=== PATIENT | male | born 1970 | race Caucasian/White ===

== ENCOUNTER 2017-08-19 12:31 | Emergency (ER) | payer SELFPAY ==
--- NOTE | 2017-08-19 12:40 | PDOC ---
History of Present Illness - General Chief Complaint: Pain, Acute Stated Complaint: left abd pain Time Seen by Provider: 08/19/17 12:33 - History of Present Illness Initial Comments: 08/19/17 12:42 47-year-old male history of daily alcohol abuse presents with worsening left- sided flank pain after a fall 2 days ago. The patient states that he was walking outside of his apartment when he became lightheaded, had tunnel vision and fell onto the railing striking his left abdomen. He does not recall if he had any head trauma but does report that he lost consciousness for about 30 seconds. He denies sustaining any other injuries from this fall. He reports that he was able to stand up soon after falling and went home where he proceeded to drink alcohol through yesterday in order to help alleviate the pain he was having on the left side of his abdomen. Today he reports the pain is much worse which prompted him to come to the emergency department. He also reports one episode of NBNB vomiting today. He denies any urinary incontinence or tongue biting when he fell. States that he may have been drinking when he fell two days ago. Denies any associated chest pain, shortness of breath, diaphoresis, palpitations before or after he lost consciousness. Denies any focal weakness or numbness. Social, +smoking, daily etoh 5-6 beers, no drugs Past History - Past Medical History Allergies/Adverse Reactions: Allergies Allergy/AdvReac Type Severity Reaction Status Date / Time No Known Allergies Allergy Verified 08/19/17 12:32 Home Medications: Ambulatory Orders Naproxen [Naprosyn -] 500 mg PO BID PRN #14 tablet 08/19/17 - Suicide/Smoking/Psychosocial Hx Smoking History: Current every day smoker Have you smoked in the past 12 months: No Number of Cigarettes Smoked Daily: 20 Hx Alcohol Use: Yes (3X/WK) Drug/Substance Use Hx: No Substance Use Type: Alcohol Review of Systems - Review of Systems Comments:: 08/19/17 12:47 GENERAL/CONSTITUTIONAL: No fever or chills. No weakness. HEAD, EYES, EARS, NOSE AND THROAT: No change in vision. No ear pain or discharge. No sore throat. GASTROINTESTINAL: +nausea, vomiting, +abd pain. no diarrhea or constipation. GENITOURINARY: No dysuria, frequency, or change in urination. CARDIOVASCULAR: No chest pain or shortness of breath. RESPIRATORY: No cough, wheezing, or hemoptysis. MUSCULOSKELETAL: No neck or back pain. SKIN: No rash NEUROLOGIC: No headache, vertigo, or change in strength/sensation. +LOC ENDOCRINE: No increased thirst. No abnormal weight change. HEMATOLOGIC/LYMPHATIC: No anemia, easy bleeding, or history of blood clots. ALLERGIC/IMMUNOLOGIC: No hives or skin allergy. *Physical Exam - Physical Exam Comments: 08/19/17 12:48 GENERAL: Awake, alert, and fully oriented, in no acute distress. +AOB HEAD: No signs of trauma EYES: PERRLA, EOMI, sclera anicteric, conjunctiva clear. Vision OU 20/20. + R upper lateral eyelid bruising, no edema ENT: Auricles normal inspection, hearing grossly normal, nares patent, no septal hematoma, oropharynx clear without exudates. Moist mucosa NECK: Normal ROM, supple, no lymphadenopathy, JVD, or masses LUNGS: Breath sounds equal, clear to auscultation bilaterally. No wheezes, and no crackles HEART: Regular rate and rhythm, normal S1 and S2, no murmurs, rubs or gallops ABDOMEN: Soft, normoactive bowel sounds. No guarding, no rebound. No masses. + L sided flank ttp +LUQ ttp EXTREMITIES: Normal range of motion, no edema. No clubbing or cyanosis. No cords, erythema, or tenderness NEUROLOGICAL: Normal speech, cranial nerves intact, negative pronator drift, 5/ 5 strength in all 4 extremities, normal sensation to light touch in all 4 extremities, normal cerebellar exam, normal gait, normal reflexes and tone SKIN: Warm, Dry, normal turgor, no rashes. Heart Score/ECG Review #1 08/19/17 12:55 Twelve-lead EKG was performed and reviewed by me. Normal sinus rhythm, rate 92. Normal axis and intervals. No ST elevations or T-wave inversions. ED Treatment Course - LABORATORY CBC & Chemistry Diagram: 08/19/17 13:10 08/19/17 13:10 Medical Decision Making - Medical Decision Making 08/19/17 13:00 47-year-old male history of alcohol abuse presents with severe left flank pain after syncope 2 days ago. Vitals initially significant for tachycardia to 114 however on my exam heart rate was 92. Exam remarkable for significant tenderness to palpation to the left flank area. Patient currently appears slightly intoxicated. Will do a syncope and trauma workup and reassess. -labs -ekg -cth,c-spine -cxr -ctap w IV contrast -pain control -reassess 08/19/17 16:43 All imaging negative. Pain improved with morphine and tylenol. Labs and EKG wnl. Pain may have been from a bruised rib. Pt reports that he has had syncope in the past in the setting of being anxious and that 2 days ago he had an anxiety provoking event that he does not want to talk about. Pt with no SOB, anemia, CHF, or hypotension. No CP. EKG wnl. I advised pt to f/u with PMD and a fly rail operator for his syncope and also advised him to cut down on his etoh use. Pt's partner is here, he requests DC home as he feels better. I discussed the physical exam findings, ancillary test results and final diagnoses with the patient. I answered all of the patient's questions. The patient was satisfied with the care received and felt comfortable with the discharge plan and treatment plan. The patient will call their primary care physician within 24 hours to arrange follow-up and will return to the Emergency Department with any new, persistent or worsening symptoms. *DC/Admit/Observation/Transfer Diagnosis at time of Disposition: Fall, Syncope - Discharge Dispostion Disposition: HOME Condition at time of disposition: Stable Admit: No - Prescriptions Prescriptions: Naproxen [Naprosyn -] 500 mg PO BID PRN #14 tablet PRN Reason: Pain - Referrals Referrals: Blake Sullivan MD [Staff Physician] - - Patient Instructions Printed Discharge Instructions: DI for Syncope in Adults (Fainting), Alcoholism (Alternative Therapy), DI for Rib Contusion Additional Instructions: Follow up with Dr. Sullivan within 1 week for follow up and also for referral to a fly rail operator within 1 month. Take naproxen twice a day as needed for pain control. Return to the emergency department if you have any new, worsening, or concerning symptoms. - Attestations Physician Attestion: 08/19/17 16:49 I, Dr. Lester Lee MD, attest that this document has been prepared under my direction and personally reviewed by me in its entirety. I further attest, that it accurately reflects all work, treatment, procedures and medical decision -making performed by me.
[2017-08-19 12:42] VITALS: TEMP 97.9; BMI 27.1
[2017-08-19] MEDS ORDERED: morphine CARPU-JECT 4 MG/1 ML DISP.SYRIN IVPUSH ONE (13:03)
[2017-08-19 13:18] LABS: BASOPHIL 3.9 % (0-2.0); EOSINOPHIL 1.2 % (0-4.5); MCH 32.7 pg (25.7-33.7); MCHC 34.5 g/dl (32.0-35.9); MEAN PLT VOLUME 8.3 fl (7.5-11.1); NEUTROPHILS 63.9 % (42.8-82.8); PLATELET COUNT 269 K/MM3 (134-434); RDW 13.5 % (11.9-15.9); WHITE BLOOD COUNT 7.6 K/mm3 (4.0-10.8)
[2017-08-19] MEDS ORDERED: morphine SULFATE 4 MG/ML VIAL ONE (13:25)
[2017-08-19 13:28] LABS: ACTIVATED PTT 25.6 SECONDS (24.0-38.9)
[2017-08-19] MEDS ORDERED: ONDANSETRON 4 MG/2 ML VIAL ONE (13:28)
[2017-08-19 13:32] LABS: ALBUMIN 4.1 g/dl (3.5-5.0); ALK PHOS 68 U/L (32-92); ANION GAP 10 (8-16); BILIRUBIN,TOTAL 0.7 mg/dl (0.2-1.0); CALCIUM 9.6 mg/dl (8.4-10.2); CO2 22 mmol/L (22-28); CREATININE 1.1 mg/dl (0.6-1.3); GLUCOSE,RANDOM 139 mg/dl (74-106); INR 0.99 (0.82-1.09); MAGNESIUM 1.6 mg/dL (1.8-2.4); PROTHROMBIN TIME (PATIENT) 11.1 SEC (10.2-13.0); SGOT/AST 33 U/L (10-42); SGPT/ALT 32 U/L (10-40); TOT PROT 7.5 g/dl (6.4-8.3)
[2017-08-19 14:13] VITALS: BP 134/80; PULSE 69
[2017-08-19] MEDS ORDERED: ACETAMINOPHEN 500 MG TABLET (FP) ONE (16:22)
[2017-08-19 16:34] LABS: PH,URINE 5.5 (4.5-8); URINE APPEARANCE Clear; URINE BILIRUBIN Negative (NEGATIVE); URINE BLOOD Negative (NEGATIVE); URINE GLUCOSE (UA) Negative (NEGATIVE); URINE KETONE Trace (NEGATIVE); URINE LEUK ESTERASE Negative (NEGATIVE); URINE NITRITE Negative (NEGATIVE); URINE PROTEIN Trace (NEGATIVE); URINE UROBILINOGEN 0.2 (0.2-1.0)
[2017-08-19 16:35] LABS: URINE COLOR YELLOW
[2017-08-19] MEDS ORDERED: ACETAMINOPHEN 500 MG TABLET (FP) PO ONE (16:42)
[2017-08-19 18:15] LABS: URINE MARIJUANA THC NEGATIVE ng/ml (CUTOFF=50)
--- NOTE | 2017-08-21 18:25 | EKG ---
Test Reason : Blood Pressure : / mmHG Vent. Rate : 092 BPM Atrial Rate : 092 BPM P-R Int : 158 ms QRS Dur : 094 ms QT Int : 368 ms P-R-T Axes : 060 043 042 degrees QTc Int : 455 ms NORMAL SINUS RHYTHM NONSPECIFIC ST ABNORMALITY WHEN COMPARED WITH ECG OF 08-NOV-2016 17:54, NO SIGNIFICANT CHANGE WAS FOUND REPEAT EKG IF CLINICALLY INDICATED Confirmed by LAVERN RAMIREZ MD ([id number]) on 08/21/2017 6:25:26 PM Referred By: CHELE Confirmed By:LAVERN RAMIREZ MD
== END 2017-08-19 16:57 | disposition home or self-care (01) ==
LOC: FER 12:31
PROC: 3E033NZ Introduction of Analgesics, Hypnotics, Sedatives into Peripheral Vein, Percutaneous Approach (ICD-10-PCS; principal; 2017-08-19)
DX: R55 Syncope and collapse (principal); W18.39XA Other fall on same level, initial encounter; Y93.89 Activity, other specified; Y92.9 Unspecified place or not applicable; F17.210 Nicotine dependence, cigarettes, uncomplicated; F10.99 Alcohol use, unspecified with unspecified alcohol-induced disorder
CPT/HCPCS: 36415; 70450-TC; 71020-TC; 72125-TC; 74177-TC; 80053; 80307; 81003; 83690; 83735; 83880; 84484; 85025; 85610; 85730; 86850; 86900; 86901; 93005; 99283-25

== ENCOUNTER 2018-03-14 11:00 | Emergency (ER) | payer SELFPAY ==
[2018-03-14 11:13] VITALS: TEMP 97.8; BMI 29.1
[2018-03-14] MEDS ORDERED: ACETAMINOPHEN 1000 MG/100 ML VIAL (NON FORMULARY) IVPB ONE (11:23)
[2018-03-14] MEDS ORDERED: ONDANSETRON 4 MG/2 ML VIAL IVPUSH ONE (11:23)
[2018-03-14] MEDS ORDERED: SODIUM CHLORIDE 1,000 ML IV STA (11:23)
[2018-03-14] MEDS ORDERED: FAMOTIDINE 20 MG/50 ML IVPB 20 MG/50 ML MG IVPB ONE ×2 (11:23→11:56)
--- NOTE | 2018-03-14 11:26 | PDOC ---
Attending Attestation - Resident Resident Name: BenyStef sánchez - ED Attending Attestation I have performed the following: I have examined & evaluated the patient, The case was reviewed & discussed with the resident, I agree w/resident's findings & plan, Exceptions are as noted - HPI HPI: 03/14/18 11:25 47y M hx of etoh abuse presents with nbnb n/v, abd pain, brbpr, associated with subjective fevers. pt also endorses some bloody stool this morning (notes loose brown stool with some blood in the toilet). pt notes he last drank this AM. and had recently tried to detox himself off etoh. pt notes episode of chest pain that lasted a few second, and is episodic, not associated with sob, diaphoresis. GENERAL: The patient is awake, alert, and fully oriented, Nontoxic - in no acute distress. HEAD: Normocephalic, atraumatic. EYES: extraocular movements intact, sclera anicteric, conjunctiva clear. ENT: Normal voice, Moist mucous membranes. NECK: Normal range of motion, supple LUNGS: Breath sounds equal, clear to auscultation bilaterally. No wheezes, no rhonchi, no rales. HEART: Regular rate and rhythm, normal S1 and S2 without murmur, rub or gallop. ABDOMEN: mild diffuse tenderness, voluntary guarding, no rebound EXTREMITIES: Normal range of motion, no edema. No clubbing or cyanosis. No cords, erythema, or tenderness. NEUROLOGICAL: No facial assymetry, Normal speech, moving all 4 extremities spontaneously and symmetrically PSYCH: Normal mood, normal affect. SKIN: Warm, Dry, normal turgor, ddx includes pancreatitis, gastritis, divertcilosis, acs will ck labs including cbc, cmp, lipase, trop will give fluids, pepcid, tylenol likley imaging due to abd exam - Physicial Exam PE: 03/14/18 12:10 see above - Medical Decision Making 03/14/18 14:10 pts labs reviewed, etoh level 160 at 11am, lfts slightly bumped, c/w chronic etohism ct abd unremarkble abd exam reasssed and si soft nontender. will continue current liter of fluids, anticipate dc, pt clinically sober, ambulating with normal gait, nonslurred speech Heart Score/ECG Review - ECG Impressions Comment:: 03/14/18 12:12 Twelve-lead EKG was performed and reviewed by me. There is normal sinus rhythm with a normal rate. rate of 68 The axis is normal. The intervals are normal. There is normal R wave progression There are no ST or T wave abnormalities.
[2018-03-14] MEDS ORDERED: ACETAMINOPHEN INJECTION 100 ML IVPB ONE (11:35)
[2018-03-14] MEDS ORDERED: ONDANSETRON 4 MG/2 ML VIAL ONE (11:35)
--- NOTE | 2018-03-14 11:59 | PDOC ---
History of Present Illness - General Chief Complaint: Pain, Acute Stated Complaint: BLOOD IN STOOL Time Seen by Provider: 03/14/18 11:12 History Source: Patient Exam Limitations: Intoxication - History of Present Illness Initial Comments: 03/14/18 11:57 Patient is a 47M with history of alcohol abuse (1 fifth of vodka per day, last drink just prior to presentation, no history of seizures) and tobacco abuse here today complaining of 3 days of abdominal pain. He's presenting today because he had an episode of bright red blood per rectum. Endorses associated fevers, chills, nausea, vomiting (non-bloody), chest pain and shortness of breath. Patient states that he's worried about detoxing and that he attempted to detox on his own but failed. Denies pain with urination. Past History - Past Medical History Allergies/Adverse Reactions: Allergies Allergy/AdvReac Type Severity Reaction Status Date / Time No Known Allergies Allergy Verified 03/14/18 11:09 Home Medications: Ambulatory Orders NK [No Known Home Medication] 03/14/18 COPD: No - Suicide/Smoking/Psychosocial Hx Smoking History: Current every day smoker Have you smoked in the past 12 months: Yes Number of Cigarettes Smoked Daily: 20 Information on smoking cessation initiated: No 'Breaking Loose' booklet given: 08/19/17 Hx Alcohol Use: Yes Drug/Substance Use Hx: No Substance Use Type: Alcohol Review of Systems - Review of Systems Comments:: 03/14/18 12:04 GENERAL/CONSTITUTIONAL: Positive for fever and chills. No weakness. HEAD, EYES, EARS, NOSE AND THROAT: No change in vision. No sore throat. CARDIOVASCULAR: Positive for chest pain and shortness of breath RESPIRATORY: No cough, wheezing, or hemoptysis. GASTROINTESTINAL: Positive for nausea, vomiting. Negative for diarrhea or constipation. GENITOURINARY: No dysuria, frequency, or change in urination. MUSCULOSKELETAL: No joint or muscle swelling or pain. No neck or back pain. SKIN: No rash NEUROLOGIC: Positive for headache. Negative for vertigo, loss of consciousness, or change in strength/sensation. ENDOCRINE: No increased thirst. No abnormal weight change HEMATOLOGIC/LYMPHATIC: No anemia, easy bleeding, or history of blood clots. ALLERGIC/IMMUNOLOGIC: No hives or skin allergy. *Physical Exam - Vital Signs Last Vital Signs Temp Pulse Resp BP Pulse Ox 97.8 F 85 20 133/85 97 03/14/18 11:10 03/14/18 11:10 03/14/18 11:10 03/14/18 11:10 03/14/18 11:10 - Physical Exam Comments: 03/14/18 12:05 GENERAL: Awake, alert, and fully oriented, in no acute distress RECTAL: Several hemorrhoids, tender, no pasha blood or mass appreciated HEAD: No signs of trauma, normocephalic, atraumatic EYES: PERRLA, EOMI, sclera anicteric, conjunctiva clear ENT: Auricles normal inspection, hearing grossly normal, nares patent, oropharynx clear without exudates. Moist mucosa NECK: Normal ROM, supple, no lymphadenopathy, JVD, or masses LUNGS: No distress, speaks full sentences, scattered wheezes bilaterally. HEART: Regular rate and rhythm, normal S1 and S2, no murmurs, rubs or gallops, peripheral pulses normal and equal bilaterally. ABDOMEN: Soft, diffusely tender, positive for voluntary guarding. No masses EXTREMITIES: Normal inspection, Normal range of motion, no edema. No clubbing or cyanosis. NEUROLOGICAL: Cranial nerves II through XII grossly intact. Normal speech, no focal sensorimotor deficits SKIN: Warm, Dry, normal turgor, no rashes or lesions noted. ED Treatment Course - LABORATORY CBC & Chemistry Diagram: 03/14/18 11:43 03/14/18 11:43 - RADIOLOGY Radiology Studies Ordered: Category Date Time Status ABDOMEN & PELVIS CT WITH CONTR [CT] Stat CT Scan 03/14/18 11:49 Ordered CXRPORT [CHEST X-RAY PORTABLE*] [RAD] Stat Radiology 03/14/18 11:27 Completed - Medications Given in the ED: ED Medications Discontinued Medications Generic Name Dose Route Start Last Admin Trade Name Freq PRN Reason Stop Dose Admin Acetaminophen 1,000 mg 03/14/18 11:23 03/14/18 11:50 Ofirmev Injection - IVPB 03/14/18 11:24 1,000 mg ONCE ONE Administration Lorazepam 2 mg 03/14/18 11:23 03/14/18 11:50 Ativan Injection - IVPUSH 03/14/18 11:24 2 mg ONCE ONE Administration Ondansetron HCl 4 mg 03/14/18 11:23 03/14/18 11:50 Zofran Injection IVPUSH 03/14/18 11:24 4 mg ONCE ONE Administration Medical Decision Making - Medical Decision Making 03/14/18 12:06 Patient is a 47M with history of alcohol abuse here today complaining of abdominal pain. Vital signs stable. Also concerned that he is about to withdraw. Hands shaking on exam. Will evaluate broadly given I do not trust patient's history given recent consumption of alcohol. Will do abdominal and cardiac workup. Will treat with fluids, tylenol, zofran, pepcid and ativan. Will do CT abdomen/pelvis with IV contrast. 03/14/18 12:28 EKG shows normal sinus rhythm with rate of 68bpm. No st elevations/depressions. Normal QRS/QTc/[place] intervals. Normal axis. No significant t wave abnormalities. 03/14/18 13:43 Laboratory Tests 03/14/18 03/14/18 03/14/18 11:31 11:43 11:43 WBC 5.3 Hgb 14.5 Plt Count 175 Total Bilirubin 0.3 AST 103 H ALT 103 H Troponin I < 0.02 Stool Occult Blood Trace Alcohol, Quantitative 160.26 H* CBC normal. AST/ALT mildly elevated. Troponin undetectable. Stool for occult blood trace positive, unsurprising given hemorrhoids on exam. Alcohol positive to 160. 03/14/18 14:12 CT negative. Patient clinically sober, receiving banana bag. Patient states that his abdominal pain has now resolved. Sitting upright. Patient now states that he does not want to detox at this time, will go home before attempting detox. Will discharge with return precautions, PCP referral, and contact information for [facility]. *DC/Admit/Observation/Transfer Diagnosis at time of Disposition: Abdominal pain - Discharge Dispostion Disposition: HOME Condition at time of disposition: Good Decision to Admit order: No - Referrals Referrals: [facility] [place] [Provider Group] - Patient Instructions Printed Discharge Instructions: DI for Alcohol Abuse, DI for Alcoholic Gastritis Additional Instructions: Please return if you have any new, worsening or concerning symptoms. Please follow up with a primary care physician, a referral has been provided for you. Please take pepcid up to twice per day for your stomach pain. Please follow up with [facility] for alcohol detox. The are located on [address] [place] [address]. Their phone number is [phone]. - Post Discharge Activity
[2018-03-14 12:16] LABS: BASO % 2.5 % (0-2.0); EOS % 2.6 % (0-4.5); HEMATOCRIT 42.7 % (35.4-49); HEMOGLOBIN 14.5 GM/dL (11.7-16.9); LYMPH % 27.8 % (8-40); MCH 33.4 pg (25.7-33.7); MCHC 34.1 g/dl (32.0-35.9); MEAN CELL VOLUME 97.9 fl (80-96); MEAN PLT VOLUME 8.1 fl (7.5-11.1); MONO % 12.6 % (3.8-10.2); NEUT % 54.5 % (42.8-82.8); PLATELET COUNT 175 K/MM3 (134-434); RBC 4.36 M/mm3 (4.00-5.60); RDW 14.7 % (11.9-15.9); WHITE BLOOD COUNT 5.3 K/mm3 (4.0-10.0)
[2018-03-14] MEDS ORDERED: FOLIC ACID INJECTION - 1 MG, THIAMINE HCL 100 MG, MULTIVIT INJECTION ADULT 10 ML in SOD... IVPB ONE (12:27)
[2018-03-14 12:44] LABS: ALBUMIN 3.7 g/dl (3.4-5.0); ANION GAP 11 (8-16); BLOOD UREA NITROGEN 16 mg/dL (7-18); CALCIUM 8.3 mg/dL (8.5-10.1); CHLORIDE 110 mmol/L (98-107); CO2 23 mmol/L (21-32); CREATININE 0.9 mg/dL (0.7-1.3); GLUCOSE,RANDOM 81 mg/dL (74-106); POTASSIUM 3.5 mmol/L (3.5-5.1); SGOT/AST 103 U/L (15-37); SODIUM 144 mmol/L (136-145)
[2018-03-14 12:48] LABS: LIPASE 230 U/L (73-393)
[2018-03-14 13:04] LABS: ALK PHOS 63 U/L (45-117); BILIRUBIN,TOTAL 0.3 mg/dL (0.2-1.0); TOT PROT 6.9 g/dl (6.4-8.2)
[2018-03-14 13:07] LABS: SGPT/ALT 103 U/L (12-78)
[2018-03-14 14:28] VITALS: BP 138/78; PULSE 68
--- NOTE | 2018-03-14 16:29 | EKG ---
Test Reason : Blood Pressure : / mmHG Vent. Rate : 068 BPM Atrial Rate : 068 BPM P-R Int : 176 ms QRS Dur : 096 ms QT Int : 412 ms P-R-T Axes : 060 037 001 degrees QTc Int : 438 ms NORMAL SINUS RHYTHM NORMAL ECG WHEN COMPARED WITH ECG OF 19-AUG-2017 12:49, NONSPECIFIC T WAVE ABNORMALITY NOW EVIDENT IN INFERIOR LEADS Confirmed by PAULA GOSS MD ([id number]) on 03/14/2018 4:29:12 PM Referred By: Confirmed By:PAULA GOSS MD
== END 2018-03-14 15:53 | disposition home or self-care (01) ==
LOC: JER 11:00
PROC: 3E033GC Introduction of Other Therapeutic Substance into Peripheral Vein, Percutaneous Approach (ICD-10-PCS; principal; 2018-03-14)
PROC: 3E033GC Introduction of Other Therapeutic Substance into Peripheral Vein, Percutaneous Approach (ICD-10-PCS; 2018-03-14)
PROC: 3E033NZ Introduction of Analgesics, Hypnotics, Sedatives into Peripheral Vein, Percutaneous Approach (ICD-10-PCS; 2018-03-14)
PROC: 3E033NZ Introduction of Analgesics, Hypnotics, Sedatives into Peripheral Vein, Percutaneous Approach (ICD-10-PCS; 2018-03-14)
PROC: 3E033GC Introduction of Other Therapeutic Substance into Peripheral Vein, Percutaneous Approach (ICD-10-PCS; 2018-03-14)
DX: K29.20 Alcoholic gastritis without bleeding (principal); F10.120 Alcohol abuse with intoxication, uncomplicated; Y90.6 Blood alcohol level of 120-199 mg/100 ml
CPT/HCPCS: 36415; 71045-TC-FY; 74177-TC; 80053; 80307; 82272; 82550; 82553; 83690; 84484; 85025; 93005; 93010; 99283-25; J0131; J7030

== ENCOUNTER 2018-03-20 14:53 | Inpatient (IN) | payer SELFPAY ==
[2018-03-20 16:37] VITALS: BMI 28.7
--- NOTE | 2018-03-20 18:24 | HP ---
CIWA Score - CIWA Score Nausea/Vomitin Muscle Tremors: 2 Anxiety: 3 Agitation: 2 Paroxysmal Sweats: 2 Orientation: 0-Oriented Tacttile Disturbances: 0-None Auditory Disturbances: 0-None Visual Disturbances: 1-Very Mild Sensitivity Headache: 1-Very Mild CIWA-Ar Total Score: 13 Admission ROS S - HPI Chief Complaint: alcohol withdrawal symptoms Allergies/Adverse Reactions: Allergies Allergy/AdvReac Type Severity Reaction Status Date / Time No Known Allergies Allergy Verified 03/14/18 11:09 History of Present Illness: 47 yo male with hx of alcohol and nicotine dependence is here seeking detox for the first time. PMHX: Asthma, hernia disc, anxiety and depression. Denies suicidal / homicidal ideation. Denies hx of suicide attempts. Reports last episode of seizure last Sunday03/14/18 and was taken to the hospital when attempting to self detox from alcohol. Reports no significant period of sobriety. Exam Limitations: No Limitations - Ebola screening Have you traveled outside of the country in the last 21 days: No Have you had contact with anyone from an Ebola affected area: No Have you been sick,other than usual withdrawal symptoms: No Do you have a fever: No - Review of Systems Constitutional: No Symptoms Reported, Chills, Diaphoresis, Changes in sleep EENT: reports: Blurred Vision (uses glases) Respiratory: reports: No Symptoms reported Cardiac: reports: No Symptoms Reported GI: reports: Diarrhea, Nausea, Poor Appetite, Poor Fluid Intake, Vomiting, Abdominal cramping, Other (hx blood in stool seen in ED 03/14/18 reports it was d /t a rupture hemrrhoids) : reports: No Symptoms Reported Musculoskeletal: reports: Back Pain, Joint Pain Integumentary: reports: No Symptoms Reported Neuro: reports: See HPI Endocrine: reports: Increased Thirst Hematology: reports: No Symptoms Reported Psychiatric: reports: Orientated x3, Anxious, Depressed Other Systems: Reviewed and Negative Patient History - Patient Medical History Hx Anemia: No Hx Asthma: Yes Hx Chronic Obstructive Pulmonary Disease (COPD): No Hx Cancer: No Hx Cardiac Disorders: No Hx Congestive Heart Failure: No Hx Hypertension: No Hx Seizures: Yes Hx Dementia: No Hx Diabetes: No Hx Gastrointestinal Disorders: No Hx Liver Disease: No Hx Genitourinary Disorders: No Hx Sexually Transmitted Disorders: No Hx Renal Disease (ESRD): No Hx Thyroid Disease: No Hx Human Immunodeficiency Virus (HIV): No (1999, declines testing ) Hx Hepatitis C: No Hx Depression: Yes Hx Suicide Attempt: No Hx Bipolar Disorder: No Hx Schizophrenia: No - Patient Surgical History Past Surgical History: Yes Hx Neurologic Surgery: No Hx Cataract Extraction: No Hx Cardiac Surgery: No Hx Lung Surgery: No Hx Breast Surgery: No Hx Breast Biopsy: No Hx Abdominal Surgery: No Hx Appendectomy: No Hx Cholecystectomy: No Hx Genitourinary Surgery: No Hx Section: No Hx Orthopedic Surgery: No Other Surgical History: LEFT ROTATOR CUFF 1999 Anesthesia Reaction: No - PPD History Previous Implant?: No Implanted On Prior R Admission?: No PPD to be Administered?: Yes - Smoking Cessation Smoking history: Current every day smoker Have you smoked in the past 12 months: Yes Aproximately how many cigarettes per day: 20 Hx Chewing Tobacco Use: No Initiated information on smoking cessation: Yes 'Breaking Loose' booklet given: 03/20/18 - Substance & Tx. History Hx Alcohol Use: Yes Hx Substance Use: Yes Substance Use Type: Alcohol Hx Substance Use Treatment: No - Substances Abused Alcohol Route: Oral Frequency: Daily Amount used: A LITTER BOTTLE VODKA Age of first use: 14 Date of Last Use: 03/20/18 Family Disease History - Family Disease History Other Family History: Patient is adopted Admission Physical Exam BHS - Vital Signs Vital Signs: Vital Signs - 24 hr 03/20/18 16:34 Temperature 97.7 F Pulse Rate 75 Respiratory 20 Rate Blood Pressure 138/90 - Physical General Appearance: Yes: Appropriately Dressed, Disheveled, Anxious HEENTM: Yes: EOMI, Hearing grossly Normal, Normal ENT Inspection, Normocephalic , Normal Voice, SALEEM, Pharynx Normal, Tm's normal, Other (wears glasses) Respiratory: Yes: Chest Non-Tender, Lungs Clear, Normal Breath Sounds, No Respiratory Distress, No Accessory Muscle Use Neck: Yes: Within Normal Limits Breast: Yes: Breast Exam Deferred Cardiology: Yes: Regular Rhythm, Regular Rate Abdominal: Yes: Normal Bowel Sounds, Non Tender, Soft, Protuberent Genitourinary: Yes: Within Normal Limits Back: Yes: Normal Inspection Musculoskeletal: Yes: full range of Motion, Gait Steady, Pelvis Stable Extremities: Yes: Normal Capillary Refill, Normal Inspection, Normal Range of Motion, Non-Tender Neurological: Yes: cracker off II-XII NML intact, Fully Oriented, Alert, Motor Strength 5/5, Depressed Affect Integumentary: Yes: Normal Color, Warm, Diaphoresis Lymphatic: Yes: Within Normal Limits - Diagnostic (1) Alcohol dependence with withdrawal Current Visit: Yes Status: Acute Qualifiers: Complication of substance-induced condition: uncomplicated Qualified Code(s ): F10.230 - Alcohol dependence with withdrawal, uncomplicated (2) Nausea & vomiting Current Visit: Yes Status: Acute Qualifiers: Vomiting type: unspecified (3) Anxious mood Current Visit: Yes Status: Acute (4) Nicotine dependence Current Visit: Yes Status: Acute Qualifiers: Nicotine product type: cigarettes Cleared for Admission [facility] - Detox or Rehab [facility] Level of Care: Medically Managed Detox Regimen/Protocol: Librium [facility] Breath Alcohol Content Breath Alcohol Content: 0.212 Urine Drug Screen - Results Drug Screen Negative: Yes
[2018-03-20] MEDS ORDERED: P-EPHED 60MG/TRIPROLIDI 2.5MG TABLET PO PRN (18:29)
[2018-03-20] MEDS ORDERED: MENTHOL/PHENOL 1 EACH UD MM PRN (18:29)
[2018-03-20] MEDS ORDERED: ACETAMINOPHEN 325 MG TABLET (FP) PO PRN (18:29)
[2018-03-20] MEDS ORDERED: MAGNESIUM CITRATE 300 ML BOTTLE PO PRN (18:29)
[2018-03-20] MEDS ORDERED: NICOTINE POLACRILEX 2 MG GUM BC PRN (18:29)
[2018-03-20] MEDS ORDERED: guaiFENesin/D-METHORPHAN HB 10 ML UNIT-DOSE CUPS PO PRN (18:29)
[2018-03-20] MEDS ORDERED: IBUPROFEN 400 MG TABLET (FP) PO PRN (18:29)
[2018-03-20] MEDS ORDERED: chlordiazePOXIDE HCL 25 MG CAPSULE PO PRN (18:29)
[2018-03-20] MEDS ORDERED: MAG HYDROX/AL HYDROX/SIMETH 30 ML UNIT-DOSE CUP PO PRN (18:29)
[2018-03-20] MEDS ORDERED: LOPERAMIDE HCL 2 MG CAPSULE PO PRN (18:29)
[2018-03-20] MEDS ORDERED: MAGNESIUM HYDROX 2400MG/30ML ORAL SUSPENSION 30 ML CUP PO PRN (18:29)
[2018-03-20] MEDS ORDERED: chlordiazePOXIDE HCL 25 MG CAPSULE PO ONE (18:45)
[2018-03-20] MEDS: hydrOXYzine PAMOATE 50 MG CAPSULE (FP) PO PRN (19:37)
[2018-03-20] MEDS: MELATONIN 5 MG TABLETS PO PRN (22:12)
[2018-03-20] MEDS: THIAMINE HCL 100 MG TABLET (FP) PO SCH (22:12)
[2018-03-20] MEDS: chlordiazePOXIDE HCL 25 MG CAPSULE PO SCH (22:12)
[2018-03-21 01:09] LABS: URINE APPEARANCE TURBID; URINE BILIRUBIN NEGATIVE (<2.0 mg/dL); URINE COLOR YELLOW; URINE GLUCOSE (UA) NEGATIVE (NEGATIVE); URINE KETONE TRACE (NEGATIVE); URINE LEUK ESTERASE NEGATIVE (NEGATIVE); URINE NITRITE NEGATIVE (NEGATIVE); URINE UROBILINOGEN NEGATIVE mg/dL (0.2-1.0)
[2018-03-21 01:24] LABS: URINE PROTEIN 1+ (NEGATIVE)
[2018-03-21 01:32] LABS: URINE MUCUS MANY
[2018-03-21] MEDS: chlordiazePOXIDE HCL 25 MG CAPSULE PO SCH ×4 (05:55→22:13)
[2018-03-21 10:10] LABS: HEMATOCRIT 43.3 % (35.4-49); HEMOGLOBIN 14.6 GM/dL (11.7-16.9); MCH 33.7 pg (25.7-33.7); MCHC 33.7 g/dl (32.0-35.9); MEAN CELL VOLUME 100.1 fl (80-96); MEAN PLT VOLUME 7.9 fl (7.5-11.1); PLATELET COUNT 206 K/MM3 (134-434); RBC 4.33 M/mm3 (4.00-5.60); RDW 15.2 % (11.9-15.9); WHITE BLOOD COUNT 5.5 K/mm3 (4.0-10.0)
[2018-03-21 10:15] LABS: BLOOD UREA NITROGEN 12 mg/dL (7-18)
[2018-03-21] MEDS: NICOTINE 21 MG/24 HOURS TOPICAL PATCH TD SCH (10:38)
[2018-03-21] MEDS: PRENATAL VITAMINS W/ FOLIC ACID TABLET (FP) PO SCH (10:38)
[2018-03-21 10:59] LABS: ALBUMIN 3.8 g/dl (3.4-5.0); ALK PHOS 72 U/L (45-117); ANION GAP 6 (8-16); BILIRUBIN,TOTAL 0.9 mg/dL (0.2-1.0); CALCIUM 9.4 mg/dL (8.5-10.1); CHLORIDE 106 mmol/L (98-107); CO2 30 mmol/L (21-32); GLUCOSE,RANDOM 89 mg/dL (74-106); POTASSIUM 4.3 mmol/L (3.5-5.1); SGOT/AST 108 U/L (15-37); SGPT/ALT 116 U/L (12-78); SODIUM 142 mmol/L (136-145); TOT PROT 7.3 g/dl (6.4-8.2)
[2018-03-21] MEDS ORDERED: NAPROXEN 375 MG TABLET (FP) PO ONE (11:26)
--- NOTE | 2018-03-21 12:25 | CONSULT ---
[facility] Psychiatric Consult - Data Date of interview: 03/21/18 Admission source: 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 This is patient's first admission to [facility]. Pt. admitted to for alcohol dependence. Substance Abuse History: Smoking Cessation. Smoking history: Current every day smoker. Have you smoked in the past 12 months: Yes. Aproximately how many cigarettes per day: 20. Hx Chewing Tobacco Use: No. Initiated information on smoking cessation: Yes. 'Breaking Loose' booklet given: 03/20/18. - Substance & Tx. History. Hx Alcohol Use: Yes. Hx Substance Use: Yes. Substance Use Type : Alcohol. Hx Substance Use Treatment: No. - Substances Abused. Alcohol. Route: Oral. Frequency: Daily. Amount used: A LITTER BOTTLE VODKA. Age of first use: 14. Date of Last Use: 03/20/18 Medical History: Left rotator cuff surgery in 1999, Asthma, Hypertension Psychiatric History: Patient denies h/o psychiatric hospitalizations, outpatient care, and suicide attempt. Physical/Sexual Abuse/Trauma History: Denies. Mental Status Exam - Mental Status Exam Alert and Oriented to: Time, Place, Person Cognitive Function: Good Patient Appearance: Well Groomed Mood: Hopeful Affect: Mood Congruent Patient Behavior: Cooperative Speech Pattern: Appropriate Voice Loudness: Normal Thought Process: Goal Oriented Thought Disorder: Not Present Hallucinations: Denies Suicidal Ideation: Denies Homicidal Ideation: Denies Insight/Judgement: Poor Sleep: Fair Appetite: Fair Muscle strength/Tone: Normal Gait/Station: Normal Psychiatric Findings - Problem List ([place] 1, 2,3) (1) Alcohol dependence with withdrawal Current Visit: Yes Status: Acute Qualifiers: Complication of substance-induced condition: uncomplicated Qualified Code(s ): F10.230 - Alcohol dependence with withdrawal, uncomplicated (2) Nicotine dependence Current Visit: Yes Status: Acute Qualifiers: Nicotine product type: cigarettes - Initial Treatment Plan Initial Treatment Plan: Psychoeducation provided. Detoxification in progress. Observation.
--- NOTE | 2018-03-21 13:12 | PN ---
[facility] CIWA - CIWA Score Nausea/Vomitin-No Nausea/No Vomiting Muscle Tremors: 3 Anxiety: 4-Mod. Anxious/Guarded Agitation: 2 Paroxysmal Sweats: 3 Orientation: 0-Oriented Tacttile Disturbances: 3-Moderate Itch/Numb/Burn Auditory Disturbances: 0-None Visual Disturbances: 2-Mild Sensitivity Headache: 0-None Present CIWA-Ar Total Score: 17 BHS Progress Note (SOAP) Subjective: Diarrhea, H/A, Interrupted Sleep, Stomach Cramping, Sweating, Body Aches, Tremors, Fatigue. Objective: PATIENT A & O X 3. NO ACUTE DISTRESS. 03/21/18 13:10 Vital Signs Temperature 96.3 F L 03/21/18 09:32 Pulse Rate 86 03/21/18 12:00 Respiratory Rate 22 03/21/18 12:00 Blood Pressure 143/91 03/21/18 09:32 O2 Sat by Pulse Oximetry (%) Laboratory Tests 03/20/18 03/21/18 03/21/18 22:29 07:00 07:00 WBC 5.5 RBC 4.33 Hgb 14.6 Hct 43.3 MCV 100.1 H MCH 33.7 MCHC 33.7 RDW 15.2 Plt Count 206 MPV 7.9 Sodium 142 Potassium 4.3 D Chloride 106 Carbon Dioxide 30 D Anion Gap 6 L BUN 12 D Creatinine 1.0 Creat Clearance w eGFR > 60 Random Glucose 89 Calcium 9.4 Total Bilirubin 0.9 D AST 108 H ALT 116 H Alkaline Phosphatase 72 Total Protein 7.3 Albumin 3.8 Urine Color Yellow Urine Appearance Turbid Urine pH 5.0 Ur Specific [place] 1.023 Urine Protein 1+ H Urine Glucose (UA) Negative Urine Ketones Trace H Urine Blood 1+ H Urine Nitrite Negative Urine Bilirubin Negative Urine Urobilinogen Negative Ur Leukocyte Esterase Negative Urine WBC (Auto) None Urine RBC (Auto) 2 Urine Mucus Many LABS NOTED. RPR RESULT PENDING. 03/21/18 13:12 Assessment: 03/21/18 13:10 WITHDRAWAL SYMPTOMS. Plan: CONTINUE DETOX. NAPROXEN BID FOR BODY ACHES. CONTINUE TO MONITOR BP.
--- NOTE | 2018-03-21 13:35 | EKG ---
Test Reason : Blood Pressure : / mmHG Vent. Rate : 059 BPM Atrial Rate : 059 BPM P-R Int : 160 ms QRS Dur : 104 ms QT Int : 452 ms P-R-T Axes : 057 065 049 degrees QTc Int : 447 ms SINUS BRADYCARDIA OTHERWISE NORMAL ECG WHEN COMPARED WITH ECG OF 14-MAR-2018 11:39, NONSPECIFIC T WAVE ABNORMALITY NO LONGER EVIDENT IN INFERIOR LEADS Confirmed by ANA PAULA TAMEZ, PAULA ([id number]) on 03/21/2018 1:34:43 PM Referred By: Confirmed By:PAULA GOSS MD
[2018-03-21] MEDS: hydrOXYzine PAMOATE 50 MG CAPSULE (FP) PO PRN (18:46)
[2018-03-21] MEDS: NAPROXEN 375 MG TABLET (FP) PO SCH (22:12)
[2018-03-21] MEDS: MELATONIN 5 MG TABLETS PO PRN (22:13)
[2018-03-21] MEDS: THIAMINE HCL 100 MG TABLET (FP) PO SCH (22:13)
[2018-03-22] MEDS: chlordiazePOXIDE HCL 25 MG CAPSULE PO SCH ×2 (06:27→10:23)
[2018-03-22 09:11] VITALS: TEMP 98.2
[2018-03-22] MEDS: PRENATAL VITAMINS W/ FOLIC ACID TABLET (FP) PO SCH (09:54)
[2018-03-22] MEDS: NICOTINE 21 MG/24 HOURS TOPICAL PATCH TD SCH (09:54)
[2018-03-22 09:55] VITALS: BP 142/89; PULSE 69
[2018-03-22] MEDS: hydrOXYzine PAMOATE 50 MG CAPSULE (FP) PO PRN (09:55)
[2018-03-22] MEDS: NAPROXEN 375 MG TABLET (FP) PO SCH (10:24)
--- NOTE | 2018-03-22 13:09 | PN ---
[facility] CIWA - CIWA Score Nausea/Vomitin-No Nausea/No Vomiting Muscle Tremors: 3 Anxiety: 4-Mod. Anxious/Guarded Agitation: 4-Moderately Restless Paroxysmal Sweats: No Perspiration Orientation: 0-Oriented Tacttile Disturbances: 2-Mild Itch/Numbness/Burn Auditory Disturbances: 0-None Visual Disturbances: 2-Mild Sensitivity Headache: 0-None Present CIWA-Ar Total Score: 15 BHS Progress Note (SOAP) Subjective: Diarrhea, Anxious, Body Aches, Tremors. Objective: PATIENT A & O X 3, OBSERVED AMBULATING ON UNIT. NO ACUTE DISTRESS. 03/22/18 13:10 Vital Signs Temperature 98.2 F 03/22/18 09:10 Pulse Rate 69 03/22/18 09:54 Respiratory Rate 18 03/22/18 09:54 Blood Pressure 142/89 03/22/18 09:54 O2 Sat by Pulse Oximetry (%) Laboratory Tests 03/20/18 03/21/18 03/21/18 22:29 07:00 07:00 WBC 5.5 RBC 4.33 Hgb 14.6 Hct 43.3 MCV 100.1 H MCH 33.7 MCHC 33.7 RDW 15.2 Plt Count 206 MPV 7.9 Sodium 142 Potassium 4.3 D Chloride 106 Carbon Dioxide 30 D Anion Gap 6 L BUN 12 D Creatinine 1.0 Creat Clearance w eGFR > 60 Random Glucose 89 Calcium 9.4 Total Bilirubin 0.9 D AST 108 H ALT 116 H Alkaline Phosphatase 72 Total Protein 7.3 Albumin 3.8 Urine Color Yellow Urine Appearance Turbid Urine pH 5.0 Ur Specific [place] 1.023 Urine Protein 1+ H Urine Glucose (UA) Negative Urine Ketones Trace H Urine Blood 1+ H Urine Nitrite Negative Urine Bilirubin Negative Urine Urobilinogen Negative Ur Leukocyte Esterase Negative Urine WBC (Auto) None Urine RBC (Auto) 2 Urine Mucus Many RPR Titer 03/21/18 07:00 WBC RBC Hgb Hct MCV MCH MCHC RDW Plt Count MPV Sodium Potassium Chloride Carbon Dioxide Anion Gap BUN Creatinine Creat Clearance w eGFR Random Glucose Calcium Total Bilirubin AST ALT Alkaline Phosphatase Total Protein Albumin Urine Color Urine Appearance Urine pH Ur Specific [place] Urine Protein Urine Glucose (UA) Urine Ketones Urine Blood Urine Nitrite Urine Bilirubin Urine Urobilinogen Ur Leukocyte Esterase Urine WBC (Auto) Urine RBC (Auto) Urine Mucus RPR Titer Nonreactive LABS NOTED. Assessment: 03/22/18 13:10 WITHDRAWAL SYMPTOMS. Plan: CONTINUE DETOX.
--- NOTE | 2018-03-22 14:08 | DS ---
[facility] Detox Discharge Summary Admission Date: 03/20/18 Discharge Date: 03/22/18 - History Present History: Alcohol Dependence Additional Comments: PATIENT HAS PERSONAL ISSUE TO ATTEND TO AND DOES NOT WISH TO STAY TO COMPLETE DETOX REGIMEN. RISKS OF LEAVING DETOX UNIT AGAINST MEDICAL ADVICE AND PRIOR TO COMPLETION OF DETOX REGIMEN EXPLAINED TO PATIENT. PATIENT ADVISED TO GO IMMEDIATELY TO NEAREST ER SHOULD ANY INTOLERABLE DETOX SYMPTOMS DEVELOP AT ANY TIME. PATIENT LEFT DETOX UNIT IN STABLE MEDICAL CONDITION. Pertinent Past History: Asthma, History of Seizures, Depression, Nicotine Dependence, Nausea, Vomiting, Anxiety. - Physical Exam Results Vital Signs: Vital Signs Temperature 98.2 F 03/22/18 09:10 Pulse Rate 69 03/22/18 09:54 Respiratory Rate 18 03/22/18 09:54 Blood Pressure 142/89 03/22/18 09:54 O2 Sat by Pulse Oximetry (%) Pertinent Admission Physical Exam Findings: WITHDRAWAL SYMPTOMS. Laboratory Tests 03/20/18 03/21/18 03/21/18 22:29 07:00 07:00 WBC 5.5 RBC 4.33 Hgb 14.6 Hct 43.3 MCV 100.1 H MCH 33.7 MCHC 33.7 RDW 15.2 Plt Count 206 MPV 7.9 Sodium 142 Potassium 4.3 D Chloride 106 Carbon Dioxide 30 D Anion Gap 6 L BUN 12 D Creatinine 1.0 Creat Clearance w eGFR > 60 Random Glucose 89 Calcium 9.4 Total Bilirubin 0.9 D AST 108 H ALT 116 H Alkaline Phosphatase 72 Total Protein 7.3 Albumin 3.8 Urine Color Yellow Urine Appearance Turbid Urine pH 5.0 Ur Specific [place] 1.023 Urine Protein 1+ H Urine Glucose (UA) Negative Urine Ketones Trace H Urine Blood 1+ H Urine Nitrite Negative Urine Bilirubin Negative Urine Urobilinogen Negative Ur Leukocyte Esterase Negative Urine WBC (Auto) None Urine RBC (Auto) 2 Urine Mucus Many RPR Titer 03/21/18 07:00 WBC RBC Hgb Hct MCV MCH MCHC RDW Plt Count MPV Sodium Potassium Chloride Carbon Dioxide Anion Gap BUN Creatinine Creat Clearance w eGFR Random Glucose Calcium Total Bilirubin AST ALT Alkaline Phosphatase Total Protein Albumin Urine Color Urine Appearance Urine pH Ur Specific [place] Urine Protein Urine Glucose (UA) Urine Ketones Urine Blood Urine Nitrite Urine Bilirubin Urine Urobilinogen Ur Leukocyte Esterase Urine WBC (Auto) Urine RBC (Auto) Urine Mucus RPR Titer Nonreactive LABS NOTED. - Treatment Hospital Course: Detoxed Safely - Medication Discharge Medications: Ambulatory Orders NK [No Known Home Medication] 03/14/18 - Diagnosis (1) Alcohol dependence with withdrawal Status: Acute Qualifiers: Complication of substance-induced condition: uncomplicated Qualified Code(s ): F10.230 - Alcohol dependence with withdrawal, uncomplicated (2) Anxious mood Status: Acute (3) Nausea & vomiting Status: Acute Qualifiers: Vomiting type: unspecified Vomiting Intractability: unspecified Qualified Code(s): R11.2 - Nausea with vomiting, unspecified (4) Nicotine dependence Status: Acute Qualifiers: Nicotine product type: cigarettes Substance use status: uncomplicated Qualified Code(s): F17.210 - Nicotine dependence, cigarettes, uncomplicated - AMA Did Patient Leave Against Medical Advice: Yes (PT HAD PWERSONAL ISSUE AND DID NOT WISH TO STAY TO COMPLETE DETOX REGIMEN.)
[2018-03-22] MEDS ORDERED: chlordiazePOXIDE 5 MG CAPSULE PO SCH (23:00)
[2018-03-23] MEDS ORDERED: chlordiazePOXIDE HCL 10 MG CAPSULE PO SCH (23:00)
== END 2018-03-22 13:34 | disposition left against medical advice (07) | DRG 770 ==
LOC: YASAS 14:53 → Y3N 18:24
PROVIDERS: ADMIT Internal Medicine; ATTEND Internal Medicine
PROC: HZ2ZZZZ Detoxification Services for Substance Abuse Treatment (ICD-10-PCS; principal; 2018-03-20)
DX: F10.230 Alcohol dependence with withdrawal, uncomplicated (principal); F17.210 Nicotine dependence, cigarettes, uncomplicated; F32.9 Major depressive disorder, single episode, unspecified; F41.9 Anxiety disorder, unspecified; R11.2 Nausea with vomiting, unspecified; J45.909 Unspecified asthma, uncomplicated; Z86.69 Personal history of other diseases of the nervous system and sense organs
CPT/HCPCS: 36415; 80053; 81003; 81015; 85027; 86593; 93005; 93010

== ENCOUNTER 2018-07-11 09:44 | Emergency (ER) | payer OTHER ==
[2018-07-11] MEDS ORDERED: ONDANSETRON 4 MG/2 ML VIAL IVPB ONE (09:57)
[2018-07-11] MEDS ORDERED: SODIUM CHLORIDE 1,000 ML IV STA (09:57)
[2018-07-11] MEDS ORDERED: diazePAM 5 MG TABLET PO ONE ×2 (09:57→12:00)
[2018-07-11 10:01] VITALS: BP 110/82; PULSE 76; TEMP 98.1; BMI 29.1
[2018-07-11] MEDS ORDERED: diazePAM 5 MG TABLET ONE ×2 (10:09→12:03)
[2018-07-11] MEDS ORDERED: ONDANSETRON 4 MG/2 ML VIAL ONE (10:09)
[2018-07-11 10:11] LABS: URINE APPEARANCE Clear; URINE BILIRUBIN Negative (NEGATIVE); URINE COLOR Amber; URINE GLUCOSE (UA) Negative (NEGATIVE); URINE KETONE Negative (NEGATIVE); URINE NITRITE Negative (NEGATIVE); URINE PROTEIN Negative (NEGATIVE); URINE UROBILINOGEN 0.2 (0.2-1.0)
[2018-07-11 10:12] LABS: URINE LEUK ESTERASE TRACE (NEGATIVE)
[2018-07-11 10:23] LABS: EPI CELLS RARE /HPF; URINE MUCUS MODERATE; URINE RBC 0-2 /hpf (0-3)
--- NOTE | 2018-07-11 10:33 | PDOC ---
History of Present Illness - General Chief Complaint: Psychiatric Stated Complaint: PANIC ATTACK Time Seen by Provider: 07/11/18 09:46 - History of Present Illness Initial Comments: 07/11/18 10:27 47 M with h/o HTN, anxiety, ETOH abuse, presents to ED with nausea, vomiting, and abdominal pain. Pt states that he feels like he is withdrawing from ETOH, but his last drink was reportedly 40 days ago. Denies any other substance abuse. Pt reports that he feels very anxious and had a "panic attack" yesterday. He states that today he vomited and had one episode of diarrhea, accompanied by diffuse abdominal pain. These are all symptoms that usually occur when he is in withdrawal. Denies CP/SOB. Denies SI/HI/AVH. Past History - Past Medical History Allergies/Adverse Reactions: Allergies Allergy/AdvReac Type Severity Reaction Status Date / Time No Known Allergies Allergy Verified 07/11/18 09:53 Home Medications: Ambulatory Orders Cephalexin [Keflex] 500 mg PO BID #14 capsule 07/11/18 Fluoxetine HCl [Prozac] 40 mg PO DAILY 07/11/18 Gabapentin [Neurontin] 300 mg PO TID 07/11/18 Naltrexone Microspheres [Vivitrol] 380 mg IM MONTHLY 07/11/18 Ondansetron [Zofran *Odt*] 8 mg SL BID PRN #12 od.tablet 07/11/18 Ramipril [Altace] 1.25 mg PO DAILY 07/11/18 Anemia: No Asthma: No (childhood asthma) Cancer: No Cardiac Disorders: No COPD: No CHF: No Dementia: No Diabetes: No GI Disorders: No Disorders: No HTN: No Kidney Stones: No Liver Disease: No Psychiatric Problems: Yes Seizures: Yes (last 04/20/18) Thyroid Disease: No - Surgical History Abdominal Surgery: No Appendectomy: No Cardiac Surgery: No Cholecystectomy: No Lung Surgery: No Neurologic Surgery: No Orthopedic Surgery: No - Reproductive History Testicular Surgery: No - Immunization History Immunization Up to Date: Yes - Suicide/Smoking/Psychosocial Hx Smoking History: Current every day smoker Have you smoked in the past 12 months: Yes Number of Cigarettes Smoked Daily: 20 Information on smoking cessation initiated: Yes 'Breaking Loose' booklet given: 04/27/18 Hx Alcohol Use: Yes (LAST WAS 40 DAYS AGO) Drug/Substance Use Hx: Yes Substance Use Type: Alcohol, Cocaine, Marijuana Hx Substance Use Treatment: Yes ([facility] 03/20/18 to 03/22/18 not completed) Review of Systems - Review of Systems Comments:: 07/11/18 10:33 GENERAL/CONSTITUTIONAL: No fever or chills. No weakness. HEAD, EYES, EARS, NOSE AND THROAT: No change in vision. No ear pain or discharge. No sore throat. CARDIOVASCULAR: No chest pain or shortness of breath. RESPIRATORY: No cough, wheezing, or hemoptysis. GASTROINTESTINAL: + nausea, vomiting, and diarrhea, + diffuse abdominal pain GENITOURINARY: No dysuria, frequency, or change in urination. MUSCULOSKELETAL: No joint or muscle swelling or pain. No neck or back pain. SKIN: No rash NEUROLOGIC: No headache, vertigo, loss of consciousness, or change in strength/ sensation. ENDOCRINE: No increased thirst. No abnormal weight change. HEMATOLOGIC/LYMPHATIC: No anemia, easy bleeding, or history of blood clots. ALLERGIC/IMMUNOLOGIC: No hives or skin allergy. PSYCH: + Anxiety *Physical Exam - Vital Signs Last Vital Signs Temp Pulse Resp BP Pulse Ox 98.1 F 76 18 110/82 100 07/11/18 09:45 07/11/18 09:45 07/11/18 09:45 07/11/18 09:45 07/11/18 09:45 - Physical Exam Comments: 07/11/18 10:34 GENERAL: Awake, alert, and fully oriented, in no acute distress. HEAD: No signs of trauma EYES: PERRLA, EOMI, sclera anicteric, conjunctiva clear ENT: Auricles normal inspection, hearing grossly normal, nares patent, oropharynx clear without exudates. Moist mucosa NECK: Nontender, no stepoffs, Normal ROM, supple, no lymphadenopathy, JVD, or masses LUNGS: Breath sounds equal, clear to auscultation bilaterally. No wheezes, and no crackles HEART: Regular rate and rhythm, normal S1 and S2, no murmurs, rubs or gallops ABDOMEN: + LLQ TTP, no rebound/guarding, negative urena's EXTREMITIES: Normal range of motion, no edema. No clubbing or cyanosis. No cords, erythema, or tenderness NEUROLOGICAL: Cranial nerves II through XII intact. 5/5 strength and sensation in all extremities, Normal speech, normal gait, normal cerebellar function SKIN: Warm, Dry, normal turgor, no rashes or lesions noted. PSYCH: No tremors, no tongue fasciculations ED Treatment Course - LABORATORY CBC & Chemistry Diagram: 07/11/18 10:30 07/11/18 10:30 - ADDITIONAL ORDERS Additional order review: Laboratory Results 07/11/18 10:05 Urine Color [place] Urine Appearance Clear Urine pH 6.0 Ur Specific [place] 1.025 Urine Protein Negative Urine Glucose (UA) Negative Urine Ketones Negative Urine Blood Negative Urine Nitrite Negative Urine Bilirubin Negative Urine Urobilinogen 0.2 Ur Leukocyte Esterase Trace H Urine RBC 0-2 Urine WBC 10-15 Ur Epithelial Cells Rare Urine Mucus Moderate - RADIOLOGY Radiology Studies Ordered: Category Date Time Status ABDOMEN & PELVIS CT WITH CONTR [CT] Stat CT Scan 07/11/18 09:57 Ordered Medical Decision Making - Medical Decision Making 07/11/18 10:34 47 M with abdominal pain, N+V+D, and anxiety. Pt expresses concern for ETOH withdrawal but clinically does not appear to be withdrawing and is well outside window for withdrawal. Exam notable for LLQ tenderness. Will r/o diverticulitis vs colitis. - Labs, UA - CTAP w/ IV contrast - IVF, tylenol, zofran, valium 07/11/18 11:48 [address]A consistent with UTI. CT unremarkable. Pt reassessed - abdominal pain has resolved. Pt tolerating PO in ED. Pt is well appearing, with normal vitals. Clinically stable for DC at this time. I discussed the physical exam findings, ancillary test results and final diagnoses with the patient. I answered all of the patient's questions. The patient was satisfied with the care received and felt comfortable with the discharge plan and treatment plan. The patient agrees to follow up with the primary care physician within 24-72 hours. *DC/Admit/Observation/Transfer Diagnosis at time of Disposition: Abdominal pain, Nausea & vomiting, Anxious mood - Discharge Dispostion Disposition: HOME - Prescriptions Prescriptions: Ondansetron [Zofran *Odt*] 8 mg SL BID PRN #12 od.tablet PRN Reason: Nausea And/Or Vomiting - Referrals Referrals: Blake Sullivan MD [Staff Physician] - Eliezer Bourgeois MD [Staff Physician] - Armando Alex MD [Staff Physician] - - Patient Instructions Printed Discharge Instructions: DI for Abdominal Pain-Adult Additional Instructions: Call the numbers provided to make an appointment with our primary care clinic or our psychiatry clinic to have your anxiety further evaluated. Your labs today showed that you have a urine infection. Take the antibiotics as prescribed to treat it. Call the number provided to make a follow up appointment with a urologist. If you experience worsening abdominal pain, vomiting, or any other concerning symptoms, return to the ER immediately. Otherwise, follow up with your primary doctor within 1 week. - Post Discharge Activity - Attestations Physician Attestion: 07/11/18 12:00 I, Dr. Levi Juárez MD, attest that this document has been prepared under my direction and personally reviewed by me in its entirety. I further attest, that it accurately reflects all work, treatment, procedures and medical decision -making performed by me.
[2018-07-11 10:39] LABS: MONO % 4.4 % (3.8-10.2)
[2018-07-11 10:44] LABS: BASO % 2.2 % (0-2.0); EOS % 0.9 % (0-4.5); HEMATOCRIT 47.2 % (35.4-49); HEMOGLOBIN 15.9 GM/dl (11.7-16.9); LYMPH % 12.9 % (8-40); MCH 32.3 pg (25.7-33.7); MCHC 33.7 g/dl (32.0-35.9); MEAN CELL VOLUME 95.9 fl (80-96); MEAN PLT VOLUME 8.3 fl (7.5-11.1); NEUT % 79.6 % (42.8-82.8); PLATELET COUNT 294 K/MM3 (134-434); RBC 4.92 M/mm3 (4.00-5.60); RDW 12.5 % (11.9-15.9)
[2018-07-11 10:53] LABS: ALBUMIN 4.3 g/dl (3.5-5.0); ALK PHOS 74 U/L (32-92); ANION GAP 10 MMOL/L (8-16); BILIRUBIN,TOTAL 0.7 mg/dl (0.2-1.0); BLOOD UREA NITROGEN 11 mg/dl (7-18); CALCIUM 9.6 mg/dl (8.4-10.2); CHLORIDE 102 mmol/L (98-107); CO2 25 mmol/L (22-28); CREATININE 1.1 mg/dl (0.6-1.3); GLUCOSE,RANDOM 107 mg/dl (74-106); POTASSIUM 4.1 mmol/L (3.5-5.1); SGOT/AST 26 U/L (10-42); SGPT/ALT 35 U/L (10-40); SODIUM 137 mmol/L (136-145); TOT PROT 7.4 g/dl (6.4-8.3)
[2018-07-11] MEDS ORDERED: CEPHALEXIN MONOHYDRATE 500 MG CAPSULE (UD) PO ONE (12:03)
[2018-07-11] MEDS ORDERED: CEPHALEXIN MONOHYDRATE 250 MG CAPSULE (FP) ONE (12:04)
[2018-07-11 12:53] LABS: LIPASE 134 U/L (73-393)
== END 2018-07-11 12:15 | disposition home or self-care (01) ==
LOC: FER 09:44
PROC: 3E033GC Introduction of Other Therapeutic Substance into Peripheral Vein, Percutaneous Approach (ICD-10-PCS; principal; 2018-07-11)
PROC: 3E0337Z Introduction of Electrolytic and Water Balance Substance into Peripheral Vein, Percutaneous Approach (ICD-10-PCS; 2018-07-11)
DX: F41.0 Panic disorder [episodic paroxysmal anxiety] (principal); R11.2 Nausea with vomiting, unspecified; R10.9 Unspecified abdominal pain
CPT/HCPCS: 36415; 74177-TC; 80053; 81003; 81015; 83690; 85025; 99284-25; J7030

== ENCOUNTER 2018-09-30 22:19 | Inpatient (IN) | payer OTHER ==
--- NOTE | 2018-09-30 23:04 | HP ---
CIWA Score Nausea/Vomitin Muscle Tremors: 4-Moderate,w/Arms Extend Anxiety: 4-Mod. Anxious/Guarded Agitation: 4-Moderately Restless Paroxysmal Sweats: No Perspiration Orientation: 0-Oriented Tacttile Disturbances: 0-None Auditory Disturbances: 0-None Visual Disturbances: 0-None Headache: 3-Moderate CIWA-Ar Total Score: 18 - Admission Criteria [facility]ASAS Guidelines: Admission for Medically Managed Detox: Requires at least one of the followin. CIWA greater than 12 2. Seizures within the past 24 hours 3. Delirium tremens within the past 24 hours 4. Hallucinations within the past 24 hours 5. Acute intervention needed for co occurring medical disorder 6. Acute intervention needed for co occurring psychiatric disorder 7. Severe withdrawal that cannot be handled at a lower level of care (continued vomiting, continued diarrhea, abnormal vital signs) requiring intravenous medication and/or fluids 8. Admission ROS [facility] Chief Complaint: Alcohol withdrawal symptoms Allergies/Adverse Reactions: Allergies Allergy/AdvReac Type Severity Reaction Status Date / Time No Known Allergies Allergy Verified 07/11/18 09:53 History of Present Illness: 48 years old male with 30 years of alcohol dependence is seeking admission to detox. Patient has been in previous detox and reports 60 days of sobriety. He has medical history of hypertension, asthma, Seizure, depression and anxiety. He denies suicide attempt and suicidal ideation at this this time. Exam Limitations: No Limitations - Ebola screening Have you traveled outside of the country in the last 21 days: No Have you had contact with anyone from an Ebola affected area: No Have you been sick,other than usual withdrawal symptoms: No Do you have a fever: No - Review of Systems Constitutional: Chills, Loss of Appetite, Malaise, Night Sweats, Changes in sleep, Weakness EENT: reports: No Symptoms Reported Respiratory: reports: No Symptoms reported Cardiac: reports: No Symptoms Reported GI: reports: Diarrhea, Poor Appetite, Poor Fluid Intake, Vomiting, Abdominal cramping : reports: No Symptoms Reported Musculoskeletal: reports: Back Pain, Muscle Pain, Muscle Weakness Integumentary: reports: No Symptoms Reported Neuro: reports: Headache, Tremors Endocrine: reports: No Symptoms Reported Hematology: reports: No Symptoms Reported Psychiatric: reports: Mood/Affect Appropiate, Orientated x3, Agitated, Anxious Other Systems: Reviewed and Negative Patient History - Patient Medical History Hx Anemia: No Hx Asthma: Yes (ALBUTEROL) Hx Chronic Obstructive Pulmonary Disease (COPD): No Hx Cancer: No Hx Cardiac Disorders: No Hx Congestive Heart Failure: No Hx Hypertension: Yes Hx Seizures: Yes (last 04/20/18M - NOT ON MEDICATION) Hx Dementia: No Hx Diabetes: No Hx Gastrointestinal Disorders: No Hx Liver Disease: No Hx Genitourinary Disorders: No Hx Sexually Transmitted Disorders: No Hx Renal Disease (ESRD): No Hx Thyroid Disease: No Hx Human Immunodeficiency Virus (HIV): No (1999, declines testing ) Hx Hepatitis C: No Hx Depression: Yes (NOT ON MEDICATION) Hx Suicide Attempt: No Hx Bipolar Disorder: No Hx Schizophrenia: No Other Medical History: ANXIETY - NOT ON MEDICATION - Patient Surgical History Past Surgical History: Yes Hx Neurologic Surgery: No Hx Cataract Extraction: No Hx Cardiac Surgery: No Hx Lung Surgery: No Hx Breast Surgery: No Hx Breast Biopsy: No Hx Abdominal Surgery: No Hx Appendectomy: No Hx Cholecystectomy: No Hx Genitourinary Surgery: No Hx Section: No Hx Orthopedic Surgery: No Other Surgical History: LEFT ROTATOR CUFF 2000 arthrosopy Anesthesia Reaction: No - PPD History Previous Implant?: Yes Documented Results: Negative w/o proof Date: 04/29/18 Results: no reading PPD to be Administered?: Yes - Reproductive History Patient is a Female of Child Bearing Age (11 -55 yrs old): No (male) - Smoking Cessation Smoking history: Current every day smoker Have you smoked in the past 12 months: Yes Aproximately how many cigarettes per day: 20 Hx Chewing Tobacco Use: No Initiated information on smoking cessation: Yes 'Breaking Loose' booklet given: 09/30/18 - Substance & Tx. History Hx Alcohol Use: Yes Hx Substance Use: No Substance Use Type: Alcohol, Marijuana Hx Substance Use Treatment: Yes ([facility]) - Substances Abused Alcohol Route: Oral Frequency: Daily Amount used: VODKA - 2 PINTS Age of first use: 14 Date of Last Use: 09/30/18 Family Disease History - Family Disease History Family History: Denies Admission Physical Exam S - Physical General Appearance: Yes: Moderate Distress, Alcohol on Breath HEENTM: Yes: Within Normal Limits Respiratory: Yes: Wheezing Neck: Yes: Supple Breast: Yes: Breast Exam Deferred Cardiology: Yes: Tachycardia Abdominal: Yes: Normal Bowel Sounds Genitourinary: Yes: Within Normal Limits Back: Yes: Normal Inspection Musculoskeletal: Yes: Back pain, Muscle Pain, Muscle weakness Extremities: Yes: Tremors 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 NML intact, Alert, Normal Mood/Affect Integumentary: Yes: Warm Lymphatic: Yes: Within Normal Limits - Diagnostic (1) Anxiety Current Visit: Yes Status: Chronic (2) Depression Current Visit: Yes Status: Chronic Qualifiers: Depression Type: unspecified Qualified Code(s): F32.9 - Major depressive disorder, single episode, unspecified (3) Asthma Current Visit: Yes Status: Chronic Qualifiers: Asthma severity: mild Asthma persistence: intermittent (4) Hypertension Current Visit: Yes Status: Acute Qualifiers: Hypertension type: essential hypertension Qualified Code(s): I10 - Essential (primary) hypertension (5) Alcohol dependence with withdrawal Current Visit: Yes Status: Chronic Qualifiers: Complication of substance-induced condition: uncomplicated Qualified Code(s ): F10.230 - Alcohol dependence with withdrawal, uncomplicated (6) Alcohol related seizure Current Visit: Yes Status: Chronic (7) Nicotine dependence Current Visit: Yes Status: Chronic Qualifiers: Nicotine product type: cigarettes Substance use status: uncomplicated Qualified Code(s): F17.210 - Nicotine dependence, cigarettes, uncomplicated Cleared for Admission [facility] - Detox or Rehab S Level of Care: Medically Managed Detox Regimen/Protocol: Valium BHS Breath Alcohol Content Breath Alcohol Content: 0
[2018-09-30 23:05] VITALS: BMI 28.5
[2018-09-30] MEDS ORDERED: NICOTINE POLACRILEX 2 MG GUM BC PRN (23:27)
[2018-09-30] MEDS ORDERED: IBUPROFEN 400 MG TABLET (FP) PO PRN (23:27)
[2018-09-30] MEDS ORDERED: guaiFENesin/D-METHORPHAN HB 10 ML UNIT-DOSE CUPS PO PRN (23:27)
[2018-09-30] MEDS ORDERED: MAGNESIUM HYDROX 2400MG/30ML ORAL SUSPENSION 30 ML CUP PO PRN (23:27)
[2018-09-30] MEDS ORDERED: MENTHOL/PHENOL 1 EACH UD MM PRN (23:27)
[2018-09-30] MEDS ORDERED: ACETAMINOPHEN 325 MG TABLET (FP) PO PRN (23:27)
[2018-09-30] MEDS ORDERED: MAG HYDROX/AL HYDROX/SIMETH 30 ML UNIT-DOSE CUP PO PRN (23:27)
[2018-09-30] MEDS ORDERED: P-EPHED 60MG/TRIPROLIDI 2.5MG TABLET PO PRN (23:27)
[2018-09-30] MEDS ORDERED: MAGNESIUM CITRATE 300 ML BOTTLE PO PRN (23:27)
[2018-09-30] MEDS ORDERED: LOPERAMIDE HCL 2 MG CAPSULE PO PRN (23:27)
[2018-10-01] MEDS ORDERED: diazePAM 5 MG TABLET PO ONE (00:33)
[2018-10-01] MEDS: MELATONIN 5 MG TABLETS PO PRN ×2 (00:51→21:30)
[2018-10-01] MEDS: diazePAM 5 MG TABLET PO SCH ×3 (05:32→21:30)
[2018-10-01] MEDS: PRENATAL VITAMINS W/ FOLIC ACID TABLET (FP) PO SCH (10:31)
[2018-10-01] MEDS: NICOTINE 14 MG/24 HOURS TOPICAL PATCH TD SCH (10:31)
[2018-10-01] MEDS: diazePAM 5 MG TABLET PO PRN ×2 (10:32→17:20)
[2018-10-01 10:58] LABS: HEMATOCRIT 42.4 % (35.4-49); HEMOGLOBIN 13.9 GM/dL (11.7-16.9); MCH 31.2 pg (25.7-33.7); MCHC 32.8 g/dl (32.0-35.9); MEAN CELL VOLUME 95.1 fl (80-96); MEAN PLT VOLUME 8.4 fl (7.5-11.1); PLATELET COUNT 208 K/MM3 (134-434); RBC 4.45 M/mm3 (4.00-5.60); RDW 16.3 % (11.9-15.9)
[2018-10-01 11:08] LABS: ALBUMIN 3.5 g/dl (3.4-5.0); ALK PHOS 81 U/L (45-117); ANION GAP 9 MMOL/L (8-16); BILIRUBIN,TOTAL 0.8 mg/dL (0.2-1); BLOOD UREA NITROGEN 19 mg/dL (7-18); CALCIUM 8.5 mg/dL (8.5-10.1); CHLORIDE 103 mmol/L (98-107); CO2 26 mmol/L (21-32); GLUCOSE,RANDOM 97 mg/dL (74-106); POTASSIUM 3.8 mmol/L (3.5-5.1); SGOT/AST 33 U/L (15-37); SGPT/ALT 42 U/L (13-61); SODIUM 139 mmol/L (136-145); TOT PROT 6.6 g/dl (6.4-8.2)
[2018-10-01] MEDS ORDERED: FLU VACCINE QUAD 60 MCG/0.5 ML (MDV 18-19) IM ONE (12:00)
[2018-10-01] MEDS ORDERED: PNEUMOC 13-VAL CONJ-DIP CRM/PF 0.5 ML DISP.SYRIN IM ONE (12:00)
[2018-10-01] MEDS ORDERED: PNEUMOCOCCAL 23 VACCINE 0.5 ML VIAL IM ONE (12:00)
--- NOTE | 2018-10-01 13:04 | PN ---
[facility] CIWA - CIWA Score Nausea/Vomitin-Mild Nausea/No Vomiting Muscle Tremors: 3 Anxiety: 4-Mod. Anxious/Guarded Agitation: 3 Paroxysmal Sweats: 1-Minimal Palms Moist Orientation: 1-Uncertain about Date Tacttile Disturbances: 0-None Auditory Disturbances: 0-None Visual Disturbances: 0-None Headache: 1-Very Mild CIWA-Ar Total Score: 14 S Progress Note (SOAP) Subjective: tremor sweat anxiety restlessness Objective: 10/01/18 13:03 Vital Signs Temperature 98.7 F 10/01/18 12:22 Pulse Rate 77 10/01/18 12:22 Respiratory Rate 17 10/01/18 12:22 Blood Pressure 127/82 10/01/18 12:22 O2 Sat by Pulse Oximetry (%) Laboratory Last Values WBC 8.0 K/mm3 (4.0-10.0) 10/01/18 07:00 RBC 4.45 M/mm3 (4.00-5.60) 10/01/18 07:00 Hgb 13.9 GM/dL (11.7-16.9) 10/01/18 07:00 Hct 42.4 % (35.4-49) 10/01/18 07:00 MCV 95.1 fl (80-96) 10/01/18 07:00 MCH 31.2 pg (25.7-33.7) 10/01/18 07:00 MCHC 32.8 g/dl (32.0-35.9) 10/01/18 07:00 RDW 16.3 % (11.9-15.9) H 10/01/18 07:00 Plt Count 208 K/MM3 (134-434) D 10/01/18 07:00 MPV 8.4 fl (7.5-11.1) 10/01/18 07:00 Sodium 139 mmol/L (136-145) 10/01/18 07:00 Potassium 3.8 mmol/L (3.5-5.1) 10/01/18 07:00 Chloride 103 mmol/L (98-107) 10/01/18 07:00 Carbon Dioxide 26 mmol/L (21-32) 10/01/18 07:00 Anion Gap 9 MMOL/L (8-16) 10/01/18 07:00 BUN 19 mg/dL (7-18) H 10/01/18 07:00 Creatinine 1.0 mg/dL (0.55-1.3) 10/01/18 07:00 Creat Clearance w eGFR > 60 (>60) 10/01/18 07:00 Random Glucose 97 mg/dL (74-106) 10/01/18 07:00 Calcium 8.5 mg/dL (8.5-10.1) 10/01/18 07:00 Total Bilirubin 0.8 mg/dL (0.2-1) 10/01/18 07:00 AST 33 U/L (15-37) 10/01/18 07:00 ALT 42 U/L (13-61) 10/01/18 07:00 Alkaline Phosphatase 81 U/L (45-117) 10/01/18 07:00 Total Protein 6.6 g/dl (6.4-8.2) 10/01/18 07:00 Albumin 3.5 g/dl (3.4-5.0) 10/01/18 07:00 RPR Titer Nonreactive (NONREACTIVE) 10/01/18 07:00 lab noted Assessment: 10/01/18 13:03 withdrawal sx Plan: continue detox
[2018-10-01] MEDS: RAMIPRIL 1.25 MG CAPSULE PO SCH (14:30)
--- NOTE | 2018-10-01 15:15 | CONSULT ---
[facility] Psychiatric Consult - Data Date of interview: 10/01/18 Admission source: [facility] Identifying data: Readmission to [facility] for this male seeking detoxification treatment on for alcohol and cannabis dependence. Patient is , a father of three, now homeless, estranged from relatives , unemployed and without income. Substance Abuse History: Confirmed by the patient in this interview. Details in current [facility] report as follows : Smoking history: Current every day smoker. Have you smoked in the past 12 months: Yes. Aproximately how many cigarettes per day: 20. Hx Chewing Tobacco Use: No. Initiated information on smoking cessation: Yes. 'Breaking Loose' booklet given: 09/30/18. - Substance & Tx. History. Hx Alcohol Use: Yes. Hx Substance Use: No. Substance Use Type: Alcohol, Marijuana. Hx Substance Use Treatment: Yes ([facility]). - Substances Abused. Alcohol. Route: Oral. Frequency: Daily. Amount used: VODKA - 2 PINTS. Age of first use: 14. Date of Last Use: 09/30/18 Medical History: Bronchial asthma, hypertension, neuropathic pain, withdrawal- related seizures and a history of orthosurgery (left rotator cuff) Psychiatric History: Patient denies history of psychiatric hospitalizations or suicide attempts. Mr York reports brief OPD care at the [facility] in [facility] where he was diagnosed with MDD + Anxiety Disorder and treated with fluoxetine. Dropped out of that program 2-3 months ago (stopped taking prozac). Physical/Sexual Abuse/Trauma History: Patient denies history of abuse. Additional Comment: Toxicology screen not available. Mental Status Exam - Mental Status Exam Alert and Oriented to: Time, Place, Person Cognitive Function: Good Patient Appearance: Well Groomed (well nourished) Mood: Nervous, Anxious Affect: Mood Congruent Patient Behavior: Fatigued, Appropriate, Cooperative Speech Pattern: Clear Voice Loudness: Normal Thought Process: Intact, Goal Oriented Thought Disorder: Not Present Hallucinations: Denies Suicidal Ideation: Denies Homicidal Ideation: Denies Insight/Judgement: Poor Sleep: Fair Appetite: Good Muscle strength/Tone: Normal Gait/Station: Normal Psychiatric Findings - Problem List ([place]ilder 1, 2,3) (1) Alcohol dependence with withdrawal Current Visit: Yes Status: Acute Qualifiers: Complication of substance-induced condition: uncomplicated Qualified Code(s ): F10.230 - Alcohol dependence with withdrawal, uncomplicated (2) Nicotine dependence Current Visit: Yes Status: Chronic Qualifiers: Nicotine product type: cigarettes Substance use status: uncomplicated Qualified Code(s): F17.210 - Nicotine dependence, cigarettes, uncomplicated (3) Insomnia Current Visit: Yes Status: Acute - Initial Treatment Plan Initial Treatment Plan: Psychoeducation. Sleep hygiene. Detoxification in progress. Patient is encouraged to maintain his decision to enter rehabilitation upon completion of this program. Supportive + group therapy. Motivational sessions to promote sobriety. AA meetings. Patient is interested in resuming [facility] naltrexone (vivitrol). Will follow. Observation.
[2018-10-01] MEDS: THIAMINE HCL 100 MG TABLET (FP) PO SCH (21:30)
[2018-10-02] MEDS: diazePAM 5 MG TABLET PO PRN ×2 (03:14→09:34)
[2018-10-02] MEDS: diazePAM 5 MG TABLET PO SCH ×3 (05:08→22:06)
[2018-10-02] MEDS: RAMIPRIL 1.25 MG CAPSULE PO SCH (10:03)
[2018-10-02] MEDS: NICOTINE 14 MG/24 HOURS TOPICAL PATCH TD SCH (10:03)
[2018-10-02] MEDS: PRENATAL VITAMINS W/ FOLIC ACID TABLET (FP) PO SCH (10:04)
--- NOTE | 2018-10-02 10:12 | PN ---
[facility] CIWA - CIWA Score Nausea/Vomitin-No Nausea/No Vomiting Muscle Tremors: 3 Anxiety: 3 Agitation: 2 Paroxysmal Sweats: 1-Minimal Palms Moist Orientation: 0-Oriented Tacttile Disturbances: 0-None Auditory Disturbances: 0-None Visual Disturbances: 0-None Headache: 2-Mild CIWA-Ar Total Score: 11 S Progress Note (SOAP) Subjective: mild tremor social with peers in day room sweat sleep better at night Objective: 10/02/18 10:11 Vital Signs Temperature 98.3 F 10/02/18 09:19 Pulse Rate 68 10/02/18 09:19 Respiratory Rate 18 10/02/18 09:19 Blood Pressure 127/70 10/02/18 09:19 O2 Sat by Pulse Oximetry (%) Laboratory Last Values WBC 8.0 K/mm3 (4.0-10.0) 10/01/18 07:00 RBC 4.45 M/mm3 (4.00-5.60) 10/01/18 07:00 Hgb 13.9 GM/dL (11.7-16.9) 10/01/18 07:00 Hct 42.4 % (35.4-49) 10/01/18 07:00 MCV 95.1 fl (80-96) 10/01/18 07:00 MCH 31.2 pg (25.7-33.7) 10/01/18 07:00 MCHC 32.8 g/dl (32.0-35.9) 10/01/18 07:00 RDW 16.3 % (11.9-15.9) H 10/01/18 07:00 Plt Count 208 K/MM3 (134-434) D 10/01/18 07:00 MPV 8.4 fl (7.5-11.1) 10/01/18 07:00 Sodium 139 mmol/L (136-145) 10/01/18 07:00 Potassium 3.8 mmol/L (3.5-5.1) 10/01/18 07:00 Chloride 103 mmol/L (98-107) 10/01/18 07:00 Carbon Dioxide 26 mmol/L (21-32) 10/01/18 07:00 Anion Gap 9 MMOL/L (8-16) 10/01/18 07:00 BUN 19 mg/dL (7-18) H 10/01/18 07:00 Creatinine 1.0 mg/dL (0.55-1.3) 10/01/18 07:00 Creat Clearance w eGFR > 60 (>60) 10/01/18 07:00 Random Glucose 97 mg/dL (74-106) 10/01/18 07:00 Calcium 8.5 mg/dL (8.5-10.1) 10/01/18 07:00 Total Bilirubin 0.8 mg/dL (0.2-1) 10/01/18 07:00 AST 33 U/L (15-37) 10/01/18 07:00 ALT 42 U/L (13-61) 10/01/18 07:00 Alkaline Phosphatase 81 U/L (45-117) 10/01/18 07:00 Total Protein 6.6 g/dl (6.4-8.2) 10/01/18 07:00 Albumin 3.5 g/dl (3.4-5.0) 10/01/18 07:00 RPR Titer Nonreactive (NONREACTIVE) 10/01/18 07:00 lab noted Assessment: 10/02/18 10:11 withdrawal sx Plan: continue detox request own shoes for ambulation on detox unit
[2018-10-02] MEDS: THIAMINE HCL 100 MG TABLET (FP) PO SCH (22:06)
[2018-10-02] MEDS: MELATONIN 5 MG TABLETS PO PRN (22:06)
[2018-10-03] MEDS: PRENATAL VITAMINS W/ FOLIC ACID TABLET (FP) PO SCH (10:19)
[2018-10-03] MEDS: RAMIPRIL 1.25 MG CAPSULE PO SCH (10:19)
[2018-10-03] MEDS: NICOTINE 14 MG/24 HOURS TOPICAL PATCH TD SCH (10:19)
[2018-10-03] MEDS: diazePAM 5 MG TABLET PO SCH ×2 (10:19→22:05)
--- NOTE | 2018-10-03 12:17 | PN ---
[facility] Progress Note (SOAP) Subjective: feeling better no tremor less sweat no gi distress discuss aftercare with staff Objective: 10/03/18 12:16 Vital Signs Temperature 96.9 F L 10/03/18 09:55 Pulse Rate 67 10/03/18 09:55 Respiratory Rate 18 12 09:55 Blood Pressure 137/87 10/03/18 09:55 O2 Sat by Pulse Oximetry (%) Laboratory Last Values WBC 8.0 K/mm3 (4.0-10.0) 10/01/18 07:00 RBC 4.45 M/mm3 (4.00-5.60) 10/01/18 07:00 Hgb 13.9 GM/dL (11.7-16.9) 10/01/18 07:00 Hct 42.4 % (35.4-49) 10/01/18 07:00 MCV 95.1 fl (80-96) 10/01/18 07:00 MCH 31.2 pg (25.7-33.7) 10/01/18 07:00 MCHC 32.8 g/dl (32.0-35.9) 10/01/18 07:00 RDW 16.3 % (11.9-15.9) H 10/01/18 07:00 Plt Count 208 K/MM3 (134-434) D 10/01/18 07:00 MPV 8.4 fl (7.5-11.1) 10/01/18 07:00 Sodium 139 mmol/L (136-145) 10/01/18 07:00 Potassium 3.8 mmol/L (3.5-5.1) 10/01/18 07:00 Chloride 103 mmol/L (98-107) 10/01/18 07:00 Carbon Dioxide 26 mmol/L (21-32) 10/01/18 07:00 Anion Gap 9 MMOL/L (8-16) 10/01/18 07:00 BUN 19 mg/dL (7-18) H 10/01/18 07:00 Creatinine 1.0 mg/dL (0.55-1.3) 10/01/18 07:00 Creat Clearance w eGFR > 60 (>60) 10/01/18 07:00 Random Glucose 97 mg/dL (74-106) 10/01/18 07:00 Calcium 8.5 mg/dL (8.5-10.1) 10/01/18 07:00 Total Bilirubin 0.8 mg/dL (0.2-1) 10/01/18 07:00 AST 33 U/L (15-37) 10/01/18 07:00 ALT 42 U/L (13-61) 10/01/18 07:00 Alkaline Phosphatase 81 U/L (45-117) 10/01/18 07:00 Total Protein 6.6 g/dl (6.4-8.2) 10/01/18 07:00 Albumin 3.5 g/dl (3.4-5.0) 10/01/18 07:00 RPR Titer Nonreactive (NONREACTIVE) 10/01/18 07:00 lab noted Assessment: 10/03/18 12:17 mild withdrawal sx Plan: medically supervised detox
[2018-10-03] MEDS: diazePAM 5 MG TABLET PO PRN ×2 (14:23→19:25)
[2018-10-03] MEDS: MELATONIN 5 MG TABLETS PO PRN (22:05)
[2018-10-03] MEDS: THIAMINE HCL 100 MG TABLET (FP) PO SCH (22:05)
[2018-10-04 06:12] VITALS: BP 108/61; PULSE 52; TEMP 96.7
--- NOTE | 2018-10-04 09:26 | PN ---
[facility] Progress Note (SOAP) Subjective: I'm better Objective: 10/04/18 09:25 Vital Signs Temperature 96.7 F L 10/04/18 06:12 Pulse Rate 52 L 10/04/18 06:12 Respiratory Rate 18 10/04/18 06:12 Blood Pressure 108/61 10/04/18 06:12 O2 Sat by Pulse Oximetry (%) Laboratory Tests 10/01/18 10/01/18 10/01/18 07:00 07:00 07:00 WBC 8.0 RBC 4.45 Hgb 13.9 Hct 42.4 MCV 95.1 MCH 31.2 MCHC 32.8 RDW 16.3 H Plt Count 208 D MPV 8.4 Sodium 139 Potassium 3.8 Chloride 103 Carbon Dioxide 26 Anion Gap 9 BUN 19 H Creatinine 1.0 Creat Clearance w eGFR > 60 Random Glucose 97 Calcium 8.5 Total Bilirubin 0.8 AST 33 ALT 42 Alkaline Phosphatase 81 Total Protein 6.6 Albumin 3.5 RPR Titer Nonreactive pt aox3 in nad ambulating Assessment: 10/04/18 09:25 detox completed Plan: d/c today cont. hydration
--- NOTE | 2018-10-04 09:29 | DS ---
[facility] Detox Discharge Summary Admission Date: 09/30/18 Discharge Date: 10/04/18 - History Present History: Alcohol Dependence - Physical Exam Results Vital Signs: Vital Signs Temperature 96.7 F L 10/04/18 06:12 Pulse Rate 52 L 10/04/18 06:12 Respiratory Rate 10/04/18 06:12 Blood Pressure 108/61 10/04/18 06:12 O2 Sat by Pulse Oximetry (%) - Treatment Hospital Course: Detox Protocol Followed, Detoxed Safely, Responded well, Discharged Condition Good - Medication Discharge Medications: Ambulatory Orders Gabapentin [Neurontin] 300 mg PO TID 07/11/18 Ramipril [Altace] 1.25 mg PO DAILY #14 capsule 10/03/18 - Diagnosis (1) Alcohol dependence with withdrawal Current Visit: Yes Status: Chronic Qualifiers: Complication of substance-induced condition: uncomplicated Qualified Code(s ): F10.230 - Alcohol dependence with withdrawal, uncomplicated (2) Depression Current Visit: Yes Status: Chronic Qualifiers: Depression Type: unspecified Qualified Code(s): F32.9 - Major depressive disorder, single episode, unspecified (3) Nicotine dependence Current Visit: Yes Status: Chronic Qualifiers: Nicotine product type: cigarettes Substance use status: uncomplicated Qualified Code(s): F17.210 - Nicotine dependence, cigarettes, uncomplicated (4) Anxiety and depression Current Visit: No Status: Chronic
[2018-10-04] MEDS: RAMIPRIL 1.25 MG CAPSULE PO SCH (10:10)
[2018-10-04] MEDS: diazePAM 5 MG TABLET PO SCH (10:10)
[2018-10-04] MEDS: PRENATAL VITAMINS W/ FOLIC ACID TABLET (FP) PO SCH (10:10)
[2018-10-04] MEDS: NICOTINE 14 MG/24 HOURS TOPICAL PATCH TD SCH (10:49)
[2018-10-05] MEDS ORDERED: diazePAM 5 MG TABLET PO SCH (10:00)
== END 2018-10-04 10:20 | disposition home or self-care (01) | DRG 775 ==
LOC: YASAS 22:19 → Y3N 23:37
PROC: HZ2ZZZZ Detoxification Services for Substance Abuse Treatment (ICD-10-PCS; principal; 2018-09-30)
DX: F10.230 Alcohol dependence with withdrawal, uncomplicated (principal); F12.20 Cannabis dependence, uncomplicated; F17.210 Nicotine dependence, cigarettes, uncomplicated; F32.9 Major depressive disorder, single episode, unspecified; F41.8 Other specified anxiety disorders; R56.9 Unspecified convulsions; G47.00 Insomnia, unspecified; J45.20 Mild intermittent asthma, uncomplicated; Z86.69 Personal history of other diseases of the nervous system and sense organs
CPT/HCPCS: 36415; 80053; 85027; 86593

== ENCOUNTER 2018-10-30 11:04 | Emergency (ER) | payer OTHER ==
[2018-10-30 11:08] VITALS: BMI 29.8
[2018-10-30] MEDS ORDERED: IBUPROFEN 400 MG TABLET (FP) PO ONE ×2 (11:15→12:21)
--- NOTE | 2018-10-30 11:18 | PDOC ---
History of Present Illness - General Chief Complaint: Pain, Acute Stated Complaint: RIGHT SHOULDER PAIN Time Seen by Provider: 10/30/18 11:05 History Source: Patient (Patient walked in complaining of right shoulder pain he injured when trying to climb over a fence [place] in a suicidal attempt. He stated that he has a history of alcoholism he was able to stay sober for more than a month, attended AA meetings at a group in [place]. 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 Family ( and teenge children living [facility], rejecting him. ) Exam Limitations: No Limitations - History of Present Illness Occurred: reports: just prior to arrival Method of Injury: reports: fell Extremity Pain Location - Extremity Pain Location Extremity Pain Locations: right: arm Past History - Travel Traveled outside of the country in the last 30 days: No Close contact w/someone who was outside of country & ill: No - Past Medical History Allergies/Adverse Reactions: Allergies Allergy/AdvReac Type Severity Reaction Status Date / Time No Known Allergies Allergy Verified 10/01/18 00:40 Home Medications: Ambulatory Orders Gabapentin [Neurontin] 300 mg PO TID 07/11/18 Ramipril [Altace] 1.25 mg PO DAILY #14 capsule 10/03/18 Anemia: No Asthma: No Cancer: No Cardiac Disorders: No CVA: No COPD: No CHF: No Dementia: No Diabetes: No GI Disorders: Yes (GERD) Disorders: No HTN: Yes Kidney Stones: No Liver Disease: No Psychiatric Problems: Yes Seizures: Yes (etoh related) Thyroid Disease: No - Surgical History Abdominal Surgery: No Appendectomy: No Cardiac Surgery: No Cholecystectomy: No Lung Surgery: No Neurologic Surgery: No Orthopedic Surgery: No - Reproductive History Testicular Surgery: No - Immunization History Immunization Up to Date: Yes - Suicide/Smoking/Psychosocial Hx Have you felt down, depressed or hopeless?: Yes Have you felt little interest or pleasure in doing things?: Yes Have you had or do you have any thoughts to hurt yourself?: Yes Have you had or do you have any thoughts to hurt others?: No Smoking History: Current every day smoker Have you smoked in the past 12 months: Yes Number of Cigarettes Smoked Daily: 20 Information on smoking cessation initiated: Yes 'Breaking Loose' booklet given: 09/30/18 Hx Alcohol Use: Yes Drug/Substance Use Hx: No Substance Use Type: Alcohol, Marijuana Hx Substance Use Treatment: No Lives with/in: homeless ?! Review of Systems - Review of Systems Able to Perform ROS?: Yes Is the patient limited Vietnamese proficient: Yes Constitutional: No: Symptoms Reported, See HPI, Chills, Diaphoresis, Fever, Loss of Appetite, Malaise, Night Sweats, Weakness, Weight Stable, Unintentional Wgt. Loss, Unexplained wgt Loss, Other HEENTM: No: Symptoms Reported, See HPI, Eye Pain, Blurred Vision, Tearing, Recent change in vision, Double Vision, Cataracts, Ear Pain, Ocular Prothesis, Ear Discharge, Nose Pain, Nose Congestion, Tinnitus, Nose Bleeding, Hearing Loss , Throat Pain, Throat Swelling, Mouth Pain, Dental Problems, Difficulty Swallowing, Mouth Swelling, Other Respiratory: No: Symptoms reported, See HPI, Cough, Orthopnea, Shortness of Breath, SOB with Exertion, SOB at Rest, Stridor, Wheezing, Productive cough, Hemoptysis, Other Cardiac (ROS): No: Symptoms Reported, See HPI, Chest Pain, Edema, Irregular Heart Rate, Lightheadedness, Palpitations, Syncope, Chest Tightness, Other ABD/GI: No: Symptoms Reported, See HPI, Abdominal Distended, Abd. Pain w/ defecation, Blood Streaked Bowels, Constipated, Diarrhea, Difficulty Swallowing , Nausea, Poor Appetite, Poor Fluid Intake, Rectal Bleeding, Vomiting, Indigestion, Abdominal cramping, Tarry Stools, Other Musculoskeletal: Yes: Symptoms Reported, See HPI, Joint Pain Integumentary: No: Symptoms Reported, See HPI, Bruising, Change in Color, Change in Hair/Nails, Dryness, Erythema, Flushing, Lesions, Lumps, Pallor, Pruritus, Rash, Sweating, Other Psychiatric: Yes: Depression (Suicidal intent) All Other Systems: Reviewed and Negative *Physical Exam - Vital Signs Last Vital Signs Temp Pulse Resp BP Pulse Ox 98.7 F 82 18 118/74 100 10/30/18 11:05 10/30/18 11:05 10/30/18 11:05 10/30/18 11:05 10/30/18 11:05 - Physical Exam General Appearance: Yes: Nourished, Appropriately Dressed, Mild Distress. No: Alcohol on Breath HEENT: positive: [place] Neck: positive: Supple Respiratory/Chest: positive: Lungs Clear Cardiovascular: positive: Regular Rate Gastrointestinal/Abdominal: positive: Flat, Soft Lymphatic: negative: Adenopathy Musculoskeletal: positive: Other (right shoulder pain with moderate pain at active motion) Extremity: positive: Normal Capillary Refill, Swelling (right shoulder) Integumentary: positive: Normal Color, Dry Neurologic: positive: canteen operator II-XII NML intact, Fully Oriented, Other (Depressed, angry affect without any threatening features) Moderate Sedation - Procedure Monitoring Vital Signs: Procedure Monitoring Vital Signs Temperature 98.7 F 10/30/18 11:05 Pulse Rate 82 10/30/18 11:05 Respiratory Rate 18 10/30/18 11:05 Blood Pressure 118/74 10/30/18 11:05 O2 Sat by Pulse Oximetry (%) 100 10/30/18 11:05 Heart Score/ECG Review - Age Age: </= 45 - Risk Factors Risk Factors Heart Score: Yes Smoking History Based on the list above the patient has:: 1-2 risk factors - Troponin Troponin: </= normal limit - ECG Intrepretation Rhythm: Regular Rhythm - Berthoud Berthoud: Normal ED Treatment Course - LABORATORY CBC & Chemistry Diagram: 10/30/18 11:47 10/30/18 11:47 Medical Decision Making - Medical Decision Making Initial assesment of shoulder injury, turned out that the patient stated he injured self while trying to jump over a fence at an overpass as to kill self Evaluation of the shoulder pain, normal Xray, pain controlled with non narcotic medication Discused with Psychiatrist project control officer Patient is repeatedly stated he intends to hurt himself if discharged 16:10 _[facility] transfer Center called, forms faxed to them 10/30/18 15:41 10/30/18 16:24 10/30/18 18:40 Dr Anders, Psychiatry evaluated patient see Psych Note Patient 2 PC Awaiting for [facility] acceptance Patient endorsed to Dr Piper at shift change *DC/Admit/Observation/Transfer Diagnosis at time of Disposition: Suicidal behavior without attempted self-injury Depression Qualifiers: Depression Type: unspecified Qualified Code(s): F32.9 - Major depressive disorder, single episode, unspecified Sprain of shoulder, left Qualifiers: Encounter type: initial encounter Shoulder sprain type: unspecified sprain Qualified Code(s): S43.402A - Unspecified sprain of left shoulder joint, initial encounter - Discharge Dispostion Condition at time of disposition: Stable - Referrals - Patient Instructions Printed Discharge Instructions: DI for Suicidal Ideation-Adult Additional Instructions: Patient to be transfered to Inpatient Psych Unit - Post Discharge Activity
[2018-10-30 12:06] LABS: BASO % 1.9 % (0-2.0); EOS % 3.8 % (0-4.5); HEMATOCRIT 44.8 % (35.4-49); HEMOGLOBIN 14.7 GM/dl (11.7-16.9); LYMPH % 24.2 % (8-40); MCH 30.9 pg (25.7-33.7); MCHC 32.8 g/dl (32.0-35.9); MEAN CELL VOLUME 94.3 fl (80-96); MEAN PLT VOLUME 8.5 fl (7.5-11.1); MONO % 8.7 % (3.8-10.2); NEUT % 61.4 % (42.8-82.8); PLATELET COUNT 278 K/MM3 (134-434); RBC 4.75 M/mm3 (4.00-5.60); RDW 14.4 % (11.9-15.9); WHITE BLOOD COUNT 6.9 K/mm3 (4.0-10.8)
[2018-10-30 12:11] LABS: MAGNESIUM 1.7 mg/dL (1.8-2.4)
[2018-10-30 12:14] LABS: ALK PHOS 62 U/L (32-92); ANION GAP 8 MMOL/L (8-16); BILIRUBIN,TOTAL 0.4 mg/dl (0.2-1.0); BLOOD UREA NITROGEN 11 mg/dl (7-18); CALCIUM 9.5 mg/dl (8.4-10.2); CHLORIDE 107 mmol/L (98-107); CO2 22 mmol/L (22-28); CREATININE 0.9 mg/dl (0.6-1.3); GLUCOSE,RANDOM 103 mg/dl (74-106); POTASSIUM 4.1 mmol/L (3.5-5.1); SGOT/AST 23 U/L (10-42); SGPT/ALT 21 U/L (10-40); SODIUM 137 mmol/L (136-145)
[2018-10-30] MEDS ORDERED: KETOROLAC TROMETHAMINE 60 MG/2 ML VIAL IM ONE (13:26)
[2018-10-30] MEDS ORDERED: KETOROLAC TROMETHAMINE 60 MG/2 ML VIAL ONE (13:28)
[2018-10-30 14:32] LABS: COCAINE, UR NEGATIVE ng/ml (CUTOFF=300); METHADONE, UR NEGATIVE ng/ml (CUTOFF=300); OPIATES, URI NEGATIVE ng/ml (CUTOFF=300); PHENCYCLIDINE,URINE NEGATIVE ng/ml (CUTOFF=25); URINE AMPHETAMINES NEGATIVE ng/ml (CUTOFF=500); URINE BARBITURATES NEGATIVE ng/ml (CUTOFF=200); URINE BENZODIAZEPINES NEGATIVE ng/ml (CUTOFF=200)
[2018-10-30] MEDS ORDERED: LIDOCAINE 5% TOPICAL PATCH ONE (15:24)
[2018-10-30] MEDS ORDERED: LIDOCAINE 5% TOPICAL PATCH TP ONE (15:38)
--- NOTE | 2018-10-30 18:09 | CON.PSY ---
Psychiatry Consult Chief Complaint: Patient jumped from a 15 feet [place],ling to kill himself. Claims he has no place to go and does not want to live any more. History of Alcohol abuse and dependence. Symptoms: reports: Depressed Mood, Suicidality, Self destructive thoughts - Previous Psychiatric Treatment Outpatient: None - Previous Substance Abuse Treatment Outpatient: Less than 6 mos ago - Reason for Previous Treatment Reason for Previous Treatment: Alcohol Abuse - Current Medications Current Medications: Active Medications Miscellaneous (Lidoderm Patch Removal) 1 each [facility] DAILY@[facility] - Allergies Allergies: Allergies Allergy/AdvReac Type Severity Reaction Status Date / Time No Known Allergies Allergy Verified 10/01/18 00:40 - Current Living Status Usual Living Arrangement: Alone - Current Mental Status Evaluation Appearance: Disheveled Attitude: Guarded - Affect Affect: Constrictive Appropriateness: Appropriate to Content - Mood Mood: Depressed - Speech/Language Expressive: Coherent - Psychomotor Activity Psychomotor Activity: Hyperactive - Thought Process Thought Process: Intact - Thought Content Hallucinations: Absent Delusions: Absent - Self Perception Self Perception: No Impairment - Cognition Attention: Alert Orientation: Time Memory, Immediate Recall: Intact Memory, Short Term: 3/3 Memory, Remote with Promptin/3 - Concentration Serial Sevens Intact: Yes Simple Calculations Intact: Yes - Abstraction Proverb Interpretation: Intact Judgement: Minimally Impaired - Insight Insight: Impaired - Impulse Control Impulse Control: Severly Impaired - Suicidal Ideation Suicidal Ideation: Yes (jumped off a 15 feet railing) - Homicidal Ideation Homicidal Ideation: No Assessment/Plan 1) Refer to In Patient psych for attempted suicide and ongoing suicidal Plans/
[2018-10-30] MEDS ORDERED: LIDOCAINE PATCH REMOVAL MC SCH (22:00)
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
[2018-10-31] MEDS ORDERED: LIDOCAINE PATCH REMOVAL MC ONE (04:00)
--- NOTE | 2018-10-31 07:59 | PDOC ---
*Physical Exam - Vital Signs Last Vital Signs Temp Pulse Resp BP Pulse Ox 98.7 F 62 16 126/83 100 10/30/18 11:05 10/31/18 05:20 10/31/18 05:20 10/31/18 05:20 10/31/18 05:20 ED Treatment Course - LABORATORY CBC & Chemistry Diagram: 10/30/18 11:47 10/30/18 11:47 - ADDITIONAL ORDERS Additional order review: 10/30/18 11:47 RBC 4.75 MCV 94.3 MCHC 32.8 RDW 14.4 D MPV 8.5 Neutrophils % 61.4 D Lymphocytes % 24.2 D Monocytes % 8.7 D Eosinophils % 3.8 D Basophils % 1.9 - Medications Given in the ED: ED Medications Discontinued Medications Generic Name Dose Route Start Last Admin Trade Name Freq PRN Reason Stop Dose Admin Ibuprofen 400 mg 10/30/18 11:15 10/30/18 12:23 Motrin - PO 10/30/18 11:16 400 mg ONCE ONE Administration Ketorolac Tromethamine 60 mg 10/30/18 13:26 10/30/18 13:36 Toradol Injection - IM 10/30/18 13:27 60 mg ONCE ONE Administration Lidocaine 1 patch 10/30/18 15:38 10/30/18 15:54 Lidoderm Patch - TP 10/30/18 15:39 1 patch ONCE ONE Administration Miscellaneous 1 each 10/31/18 04:00 10/31/18 05:03 Lidoderm Patch Removal MC 10/31/18 04:01 1 each ONCE ONE Administration Medical Decision Making - Medical Decision Making 10/31/18 07:[address] Piper. Awaiting transfer to [facility]. The patient is still patiently waiting for a bed. No complaints at this time. I had reached out to [facility] transfer center and spoke to psych center. They stated that the residents are reviewing the case with the attending and will touch base with me in regards to disposition. 10/31/18 08:37 Pt received bed from [facility] Psych facility. Awaiting transfer. EMS activated for transfer. *DC/Admit/Observation/Transfer Diagnosis at time of Disposition: Suicidal behavior without attempted self-injury Depression Qualifiers: Depression Type: unspecified Qualified Code(s): F32.9 - Major depressive disorder, single episode, unspecified Sprain of shoulder, left Qualifiers: Encounter type: initial encounter Shoulder sprain type: unspecified sprain Qualified Code(s): S43.402A - Unspecified sprain of left shoulder joint, initial encounter - Discharge Dispostion Disposition: TRANSFER ACUTE CARE/OTHER HOSP Condition at time of disposition: Stable - Referrals - Patient Instructions Printed Discharge Instructions: DI for Suicidal Ideation-Adult Additional Instructions: Patient to be transfered to Inpatient Psych Unit - Post Discharge Activity - Transfer to Acute Care Facility Receiving [facility]. Accepting Physician:: Dr. Sanders
[2018-10-31 08:40] VITALS: BP 123/89; PULSE 83; TEMP 98.1
--- NOTE | 2018-10-31 12:47 | EKG ---
Test Reason : Blood Pressure : / mmHG Vent. Rate : 049 BPM Atrial Rate : 049 BPM P-R Int : 162 ms QRS Dur : 100 ms QT Int : 442 ms P-R-T Axes : 048 064 050 degrees QTc Int : 399 ms SINUS BRADYCARDIA WITH SINUS ARRHYTHMIA OTHERWISE NORMAL ECG WHEN COMPARED WITH ECG OF 27-APR-2018 18:38, QT HAS SHORTENED Confirmed by PAULA GOSS MD ([id number]) on 10/31/2018 12:47:11 PM Referred By: MD SCHWARTZ Confirmed By:PAULA GOSS MD
== END 2018-10-31 09:42 | disposition short-term general hospital (02) ==
LOC: FER 11:04
PROC: 3E0233Z Introduction of Anti-inflammatory into Muscle, Percutaneous Approach (ICD-10-PCS; principal; 2018-10-30)
DX: T14.91XA Suicide attempt, initial encounter (principal); Y93.9 Activity, unspecified; Y92.89 Other specified places as the place of occurrence of the external cause; F32.9 Major depressive disorder, single episode, unspecified; S43.402A Unspecified sprain of left shoulder joint, initial encounter; F10.21 Alcohol dependence, in remission; I10 Essential (primary) hypertension; K21.9 Gastro-esophageal reflux disease without esophagitis; Z86.69 Personal history of other diseases of the nervous system and sense organs
CPT/HCPCS: 36415; 73030-TC-RT-FY; 80053; 80307; 83735; 85025; 93005; 99285-25

== ENCOUNTER 2019-07-03 19:29 | Inpatient (IN) | payer OTHER | END 2019-07-07 09:03 | disposition home or self-care (01) | LOC: YASAS 19:29 → Y3N 07-07 02:56 ==

== ENCOUNTER 2019-10-13 14:34 | Inpatient (IN) | payer OTHER ==
[2019-10-13] MEDS ORDERED: SODIUM CHLORIDE 1,000 ML IV ONE (14:43)
[2019-10-13] MEDS ORDERED: diazePAM CARPU-JECT 10 MG/2 ML DISP.SYRIN IVPUSH ONE ×2 (14:43→16:13)
[2019-10-13] MEDS ORDERED: diazePAM CARPU-JECT 10 MG/2 ML DISP.SYRIN ONE ×2 (15:17→16:14)
--- NOTE | 2019-10-13 15:32 | PDOC ---
Documentation entered by Trisha Schaefer SCRIBE, acting as scribe for Moose Baron MD. Moose Baron MD: This documentation has been prepared by the Olive jernigan Xhesika, SCRIBE, under my direction and personally reviewed by me in its entirety. I confirm that the documentation accurately reflects all work, treatment, procedures, and medical decision making performed by me. History of Present Illness - General Chief Complaint: Alcohol intoxication Stated Complaint: etoh withdrawal Time Seen by Provider: 10/13/19 14:42 History Source: Patient Exam Limitations: No Limitations - History of Present Illness Initial Comments: 10/13/19 15:19 The patient is a 49 year old male with a significant PMH of HTN (non compliant with medications), and ETOH abuse who presents to the emergency department for alcohol withdrawal since this morning. Pt reports chills, vomiting, abdominal pain, tremors, and chest discomfort. Pt notes his last drink was 20 min prior to arrival, however, before today his last drink was yesterday. Pt notes he was in outpatient detox 3 months ago and most recently discharged on 06/2019, started doing better, but relapsed after 3 weeks. The patient denies shortness of breath, headache and dizziness. Denies fever, cough, nausea, diarrhea and constipation. Allergies: NKDA Past surgical history: shoulder surgery Social history: etoh abuse, tobacco use. Past History - Past Medical History Allergies/Adverse Reactions: Allergies Allergy/AdvReac Type Severity Reaction Status Date / Time No Known Allergies Allergy Verified 10/13/19 14:36 Home Medications: Ambulatory Orders NK [No Known Home Medication] 07/03/19 Anemia: No Asthma: Yes Cancer: No Cardiac Disorders: No CVA: No COPD: No CHF: No Dementia: No Diabetes: No GI Disorders: Yes (GERD - Not on medication ) Disorders: No HTN: Yes (Ramipril) Kidney Stones: No Liver Disease: No Psychiatric Problems: Yes Seizures: Yes (Etoh related) Thyroid Disease: No - Surgical History Abdominal Surgery: No Appendectomy: No Cardiac Surgery: No Cholecystectomy: No Lung Surgery: No Neurologic Surgery: No Orthopedic Surgery: No - Reproductive History Testicular Surgery: No - Immunization History Immunization Up to Date: Yes - Psycho Social/Smoking Cessation Hx Smoking History: Current every day smoker Have you smoked in the past 12 months: Yes Number of Cigarettes Smoked Daily: 20 'Breaking Loose' booklet given: 07/03/19 Hx Alcohol Use: Yes Drug/Substance Use Hx: No Substance Use Type: Alcohol Hx Substance Use Treatment: Yes Review of Systems - Review of Systems Able to Perform ROS?: Yes Comments:: 10/13/19 15:20 GENERAL/CONSTITUTIONAL: No fever. No weakness. +chills. +tremors HEAD, EYES, EARS, NOSE AND THROAT: No change in vision. No ear pain or discharge. No sore throat. CARDIOVASCULAR: + chest discomfort. No shortness of breath. RESPIRATORY: No cough, wheezing, or hemoptysis. GASTROINTESTINAL: +vomiting. No nausea, diarrhea or constipation. GENITOURINARY: No dysuria, frequency, or change in urination. MUSCULOSKELETAL: +abdominal pain. No joint or muscle swelling or pain. No neck or back pain. SKIN: No rash NEUROLOGIC: No headache, vertigo, loss of consciousness, or change in strength/ sensation. ENDOCRINE: No increased thirst. No abnormal weight change. HEMATOLOGIC/LYMPHATIC: No anemia, easy bleeding, or history of blood clots. ALLERGIC/IMMUNOLOGIC: No hives or skin allergy. Constitutional: Yes: Chills. No: Fever Respiratory: No: Cough, Shortness of Breath Cardiac (ROS): Yes: Chest Pain, Palpitations. No: Edema ABD/GI: Yes: See HPI, Nausea, Vomiting. No: Diarrhea Neurological: Yes: Tremors. No: Headache All Other Systems: Reviewed and Negative *Physical Exam - Physical Exam 10/13/19 15:22 GENERAL: The patient is awake, alert. +mild to moderate distress. HEAD: Normal with no signs of trauma. ENT: Ears normal, nares patent, oropharynx clear without exudates. + dry mucous membranes. +tongue fasciculation NECK: Normal range of motion, supple without lymphadenopathy, JVD, or masses. LUNGS: +scattered end expiratory wheezes. No crackles. No focally decreased breath sounds. HEART: +slight tachycardia. normal S1 and S2 without murmur or rub. ABDOMEN: + diffuse discomfort to palpation with guarding in epigastric region. Soft, nondistended. BS wnl. No rebound. No palpable masses. No hepatosplenomegaly. EXTREMITIES: Normal range of motion, no edema. No clubbing or cyanosis. No cords, erythema, or tenderness. SKIN: Warm, Dry, normal turgor, no rashes or lesions noted. Heart Score/ECG Review #1 ECG reviewed & interpreted by me at: 15:30 General ECG Interpretation: Sinus Rhythm, Normal Rate (87), Normal Intervals ( qtc 469), No acute ischemic changes ED Treatment Course - LABORATORY CBC & Chemistry Diagram: 10/13/19 15:15 10/13/19 15:15 Medical Decision Making - Critical Care Time Total Critical Care Time (minutes): 50 Critical Care Statement: The care of this patient involved high complexity decision making to prevent further life threatening deterioration of the patient 's condition and/or to evaluate & treat vital organ system(s) failure or risk of failure. - Medical Decision Making 10/13/19 15:14 A portion of this note was documented by scribe services under my direction. I have reviewed the details of the note, within reason, and agree with the documentation with the following case summary and management plan written by me. 49-year-old male with history of alcoholism requiring inpatient detox in the past, most recently discharged from [facility] June 2019 after successful detox, reportedly placed on Vivitrol which he self DC'd, return to drinking and presents now with tremors and diffuse body aches with nausea/vomiting and palpitations in the setting of attempted self detox. patient began withdrawing last week when he tried to stop drinking, binge over the weekend, awoke this morning with recurring withdrawal symptoms. No seizure, no other infectious complaints. Vitals as noted, slight tachycardia, tremulous, mild to moderate distress No jaundice or pallor, dry mucosa, positive tongue fasciculations Heart is regular slight tachycardia, lungs are clear Diffuse discomfort to palpation greatest in the epigastric region Positive tremors 49-year-old male with alcohol withdrawal, normal mental status and no seizure activity, slight hemodynamic instability. IV access, IV benzos EKG, labs including lipase Chest x-ray reassess 10/13/19 15:40 sxs markedly improved after valium. add librium. workup pending, reassess and dispo accordingly ([facility] if acute withdrawal resolved v. admission if sxs recur). 10/13/19 16:24 No leukocytosis, chemistries within normal limits except for slightly elevated LFTs, lipase pending. Alcohol 70. Patient initially markedly improved after 5 mg Valium, then withdrawal symptoms with tremors recurred. Given Valium 10 mg, will admit for active withdrawal and further medical management. CXR nl . 10/13/19 16:34 Accepted for inpatient tele by Dr. Veronica, signout given to KD Prince. Lipase pending. Discharge - Discharge Information Clinical Impression/Diagnosis: Alcohol dependence with withdrawal Qualifiers: Complication of substance-induced condition: with unspecified complication Qualified Code(s): F10.239 - Alcohol dependence with withdrawal, unspecified Condition: Fair - Follow up/Referral - Patient Discharge Instructions - Post Discharge Activity
[2019-10-13 15:45] LABS: BASO % 1.3 % (0-2.0); EOS % 2.8 % (0-4.5); HEMOGLOBIN 15.7 GM/dl (11.7-16.9); LYMPH % 20.2 % (8-40); MCH 33.3 pg (25.7-33.7); MCHC 33.4 g/dl (32.0-35.9); MEAN CELL VOLUME 99.6 fl (80-96); MEAN PLT VOLUME 8.1 fl (7.5-11.1); MONO % 7.5 % (3.8-10.2); NEUT % 68.2 % (42.8-82.8); PLATELET COUNT 209 K/MM3 (134-434); RBC 4.72 M/mm3 (4.00-5.60); RDW 14.3 % (11.9-15.9)
[2019-10-13 15:54] LABS: ALBUMIN 4.2 g/dl (3.4-5.0); BILIRUBIN,TOTAL 1.1 mg/dl (0.2-1); CALCIUM 9.1 mg/dl (8.5-10); CREATININE 0.9 mg/dl (0.55-1.3); POTASSIUM 3.6 mmol/L (3.5-5.1); TOT PROT 7.4 g/dl (6.4-8.2)
[2019-10-13] MEDS ORDERED: chlordiazePOXIDE HCL 25 MG CAPSULE PO ONE ×2 (15:57→21:15)
[2019-10-13] MEDS ORDERED: ONDANSETRON 4 MG/2 ML VIAL IVPUSH ONE (16:09)
[2019-10-13] MEDS ORDERED: chlordiazePOXIDE HCL 25 MG CAPSULE ONE (16:11)
[2019-10-13] MEDS ORDERED: ONDANSETRON 4 MG/2 ML VIAL ONE (16:12)
--- NOTE | 2019-10-13 19:29 | HP ---
CHIEF COMPLAINT: Alcohol withdrawal HISTORY OF PRESENT ILLNESS: 49 year-old male with a PMH significant for asthma, HTN, polysubstance abuse ( alcohol, xanax), withdrawal-related seizure (2017), neuropathic pain, GERD, and major depressive disorder with suicidal behavior, s/p psych hospitalization at [facility] in October 2018 folloiwing an attempted suicide. Went through detox at [facility] 07/03-07/07/19. Presents to the ED in alcohol withdrawal since this morning. Patient reports chills, vomiting, abdominal pain, tremors, and chest discomfort. His last drink was 20 minutes prior to arrival, however, before today his last drink was yesterday. The patient denies shortness of breath, headache and dizziness. Denies fever, cough, nausea, diarrhea and constipation. ER course was notable for: (1) Librium 50mg x 1; valium IVP 5mg x 1 (2) NS x 1L Recent Travel: No PAST MEDICAL HISTORY: Asthma Hypertension Neuropathic pain Withdrawal-related seizures GERD Major depressive disorder PAST SURGICAL HISTORY: Left rotator cuff surgery Social History: Smoking: current every day Alcohol: vodka daily; last drink this morning Drugs: xanax Allergies No Known Allergies Allergy (Verified 10/13/19 14:36) HOME MEDICATIONS: Home Medications Medication Instructions Recorded NK [No Known Home Medication] 07/03/19 REVIEW OF SYSTEMS CONSTITUTIONAL: +chills Absent: fever, chills, diaphoresis, generalized weakness, malaise, loss of appetite, weight change HEENT: Absent: rhinorrhea, nasal congestion, throat pain, throat swelling, difficulty swallowing, mouth swelling, ear pain, eye pain, visual changes CARDIOVASCULAR: Absent: chest pain, syncope, palpitations, irregular heart rate, lightheadedness , peripheral edema RESPIRATORY: Absent: cough, shortness of breath, dyspnea with exertion, orthopnea, wheezing, stridor, hemoptysis GASTROINTESTINAL: +nausea, vomiting, abdominal pain Absent: abdominal distension, diarrhea, constipation, melena, hematochezia GENITOURINARY: Absent: dysuria, frequency, urgency, hesitancy, hematuria, flank pain, genital pain MUSCULOSKELETAL: +body aches Absent: myalgia, arthralgia, joint swelling, back pain, neck pain SKIN: Absent: rash, itching, pallor HEMATOLOGIC/IMMUNOLOGIC: Absent: easy bleeding, easy bruising, lymphadenopathy, frequent infections ENDOCRINE: Absent: unexplained weight gain, unexplained weight loss, heat intolerance, cold intolerance NEUROLOGIC: +tremors, asterixis, panic, Absent: headache, focal weakness or paresthesias, dizziness, unsteady gait, seizure, mental status changes, bladder or bowel incontinence PSYCHIATRIC: Absent: anxiety, depression, suicidal or homicidal ideation, hallucinations. PHYSICAL EXAMINATION Vital Signs - 24 hr 10/13/19 10/13/19 14:35 17:40 Temperature 97.4 F L Pulse Rate 63 Pulse Rate [ 70 Right] Respiratory 20 16 Rate Blood Pressure 129/95 Blood Pressure 131/73 [Right Arm] O2 Sat by Pulse 97 100 Oximetry (%) GENERAL/Neuro: Awake, alert, and fully oriented. Flushed. Tremulous. + Asterixis. Restless. Ill-appearing. HEAD: Normal with no signs of trauma. EYES: Pupils equal, round and reactive to light, extraocular movements intact, sclera anicteric, conjunctiva clear. No lid lag. LUNGS: Breath sounds equal, clear to auscultation bilaterally. No wheezes, and no crackles. No accessory muscle use. HEART: Regular rate and rhythm, normal S1 and S2 ABDOMEN: Soft, nontender, not distended UPPER EXTREMITIES: 2+ pulses, warm, well-perfused. No cyanosis. No clubbing. No peripheral edema. LOWER EXTREMITIES: 2+ pulses, warm, well-perfused. No calf tenderness. No peripheral edema. . Laboratory Results - last 24 hr 10/13/19 10/13/19 10/13/19 15:15 15:15 15:15 WBC RBC Hgb Hct MCV MCH MCHC RDW Plt Count MPV Absolute Neuts (auto) Neutrophils % Lymphocytes % Monocytes % Eosinophils % Basophils % Sodium 137 Potassium 3.6 Chloride 104 Carbon Dioxide 20 L Anion Gap 13 BUN 12.0 Creatinine 0.9 Est GFR (CKD-EPI)AfAm 115.83 Est GFR (CKD-EPI)NonAf 99.94 Random Glucose 91 Calcium 9.1 Total Bilirubin 1.1 H AST 93 H ALT 70 H Alkaline Phosphatase 52 Creatine Kinase 281 Creatine Kinase Index 0.7 CK-MB (CK-2) 2.1 Troponin I < 0.03 Total Protein 7.4 Albumin 4.2 Lipase Salicylates Acetaminophen Alcohol, Quantitative 70.4 H 10/13/19 10/13/19 10/13/19 15:15 15:15 15:58 WBC 6.0 RBC 4.72 Hgb 15.7 Hct 47.0 MCV 99.6 H MCH 33.3 MCHC 33.4 RDW 14.3 Plt Count 209 D MPV 8.1 Absolute Neuts (auto) 4.1 Neutrophils % 68.2 Lymphocytes % 20.2 Monocytes % 7.5 Eosinophils % 2.8 Basophils % 1.3 Sodium Potassium Chloride Carbon Dioxide Anion Gap BUN Creatinine Est GFR (CKD-EPI)AfAm Est GFR (CKD-EPI)NonAf Random Glucose Calcium Total Bilirubin AST ALT Alkaline Phosphatase Creatine Kinase Creatine Kinase Index CK-MB (CK-2) Troponin I Total Protein Albumin Lipase 200 Salicylates 3.8 Acetaminophen <2.0 Alcohol, Quantitative ASSESSMENT/PLAN: 49 year-old male with a PMH significant for asthma, HTN, polysubstance abuse ( alcohol, xanax), withdrawal-related seizures, neuropathic pain, GERD, and major depressive disorder with suicidal behavior, s/p psych hospitalization at [facility] in October 2018 following an attempted suicide. Admitted for acute alcohol withdrawal. Acute alcohol withdrawal --stat 1L bolus NS --stat ativan IVP 2mg and librium 50mg x 1 for severe tremors, anxiety, restlessness --start librium taper --banana bag --daily thiamine, folate --ativan PRN for seizures --telemetry monitoring Hypertension --BP stable --not on anti-hypertensives GERD --protonix Major depressive disorder --denies suicidal or homicidal thoughts at this time --has had no recurrence of suicidality since October 2018 --not on medication DVT prophylaxis: subq heparin Visit type - Emergency Visit Emergency Visit: Yes ED Registration Date: 10/13/19 Care time: The patient presented to the Emergency Department on the above date and was hospitalized for further evaluation of their emergent condition. - New Patient This patient is new to me today: Yes Date on this admission: 10/13/19 - Critical Care Critical Care patient: No
[2019-10-13] MEDS ORDERED: FOLIC ACID INJECTION - 1 MG, THIAMINE HCL 100 MG, MULTIVIT INJECTION ADULT 10 ML in SOD... IVPB ONE (19:41)
[2019-10-13] MEDS ORDERED: LORazepam 2 MG/ML SDV VIAL IVPUSH ONE (19:55)
[2019-10-13] MEDS ORDERED: SODIUM CHLORIDE 1,000 ML IV STA (20:19)
[2019-10-13] MEDS ORDERED: LORazepam 2 MG/ML SDV VIAL IVPUSH STA (20:19)
[2019-10-13] MEDS ORDERED: SODIUM CHLORIDE 1,000 ML IV SCH (20:30)
[2019-10-13] MEDS: PANTOPRAZOLE 40 MG TABLET (FP) PO SCH (20:33)
[2019-10-13 21:13] LABS: COCAINE, UR NEGATIVE ng/ml (CUTOFF=300); METHADONE, UR NEGATIVE ng/ml (CUTOFF=300); OPIATES, URI NEGATIVE ng/ml (CUTOFF=300); PHENCYCLIDINE,URINE NEGATIVE ng/ml (CUTOFF=25); URINE AMPHETAMINES NEGATIVE ng/ml (CUTOFF=500); URINE BARBITURATES NEGATIVE ng/ml (CUTOFF=200)
[2019-10-13 21:36] VITALS: BMI 29.4
[2019-10-13 22:00] LABS: URINE BENZODIAZEPINES POSITIVE ng/ml (CUTOFF=200)
[2019-10-13] MEDS: chlordiazePOXIDE HCL 25 MG CAPSULE PO SCH (23:12)
[2019-10-13] MEDS: HEPARIN NA (PORCINE) 5,000 UNITS/ML 1ML VIAL SQ SCH (23:12)
[2019-10-14] MEDS: chlordiazePOXIDE HCL 25 MG CAPSULE PO PRN ×3 (02:03→14:54)
[2019-10-14] MEDS: HEPARIN NA (PORCINE) 5,000 UNITS/ML 1ML VIAL SQ SCH ×3 (05:42→21:54)
[2019-10-14] MEDS: chlordiazePOXIDE HCL 25 MG CAPSULE PO SCH ×4 (05:42→23:26)
[2019-10-14 08:39] LABS: BASO % 0.8 % (0-2.0); HEMATOCRIT 43.4 % (35.4-49); HEMOGLOBIN 14.6 GM/dl (11.7-16.9); LYMPH % 26.3 % (8-40); MCH 33.3 pg (25.7-33.7); MCHC 33.6 g/dl (32.0-35.9); MEAN CELL VOLUME 99.3 fl (80-96); MEAN PLT VOLUME 8.2 fl (7.5-11.1); MONO % 6.6 % (3.8-10.2); NEUT % 62.3 % (42.8-82.8); PLATELET COUNT 163 K/MM3 (134-434); RBC 4.37 M/mm3 (4.00-5.60); RDW 13.7 % (11.9-15.9); WHITE BLOOD COUNT 7.7 K/mm3 (4.0-10.8)
[2019-10-14 08:50] LABS: ALBUMIN 3.6 g/dl (3.4-5.0); BILIRUBIN,TOTAL 1.3 mg/dl (0.2-1); CALCIUM 7.8 mg/dl (8.5-10); MAGNESIUM 1.4 mg/dL (1.8-2.4); POTASSIUM 3.4 mmol/L (3.5-5.1); TOT PROT 6.6 g/dl (6.4-8.2)
[2019-10-14] MEDS: PANTOPRAZOLE 40 MG TABLET (FP) PO SCH (09:38)
--- NOTE | 2019-10-14 09:49 | PN ---
Progress Note, Physician History of Present Illness: 49 year-old male with a PMH significant for asthma, HTN, polysubstance abuse ( alcohol, xanax), withdrawal-related seizure (2017), neuropathic pain, GERD, and major depressive disorder with suicidal behavior, s/p psych hospitalization at [facility] in October 2018 folloiwing an attempted suicide. Went through detox at [facility] 07/03-07/07/19. Presents to the ED in alcohol withdrawal - Current Medication List Current Medications: Active Medications Chlordiazepoxide HCl (Librium -) 10 mg PO [id number] [facility] Stop: 10/16/19 23:01 Chlordiazepoxide HCl (Librium -) 10 mg PO Q12H SONIYA Stop: 10/17/19 17:01 Chlordiazepoxide HCl (Librium -) 10 mg PO Q4H PRN PRN Reason: WITHDRAWAL(CONT SUBST) Stop: 10/17/19 00:00 Chlordiazepoxide HCl (Librium -) 10 mg PO ONCE@0500 ONE Stop: 10/18/19 05:01 Chlordiazepoxide HCl (Librium -) 50 mg PO [id number] [facility] Stop: 10/14/19 23:01 Last Admin: 10/14/19 05:42 Dose: 50 mg Chlordiazepoxide HCl (Librium -) 25 mg PO [id number] [facility] Stop: 10/15/19 23:01 Chlordiazepoxide HCl (Librium -) 25 mg PO Q4H PRN PRN Reason: WITHDRAWAL(CONT SUBST) Stop: 10/15/19 23:59 Last Admin: 10/14/19 09:38 Dose: 25 mg Folic Acid (Folic Acid -) 1 mg PO DAILY [facility] Last Admin: 10/14/19 09:38 Dose: 1 mg Heparin Sodium (Porcine) (Heparin -) 5,000 unit SQ TID [facility] Last Admin: 10/14/19 05:42 Dose: 5,000 unit Sodium Chloride (Normal Saline -) 1,000 mls @ 75 mls/hr IV ASDIR [facility] Pantoprazole Sodium (Protonix -) 40 mg PO DAILY [facility] Last Admin: 10/14/19 09:38 Dose: 40 mg Thiamine HCl (Vitamin B1 -) 100 mg PO DAILY [facility] Last Admin: 10/14/19 09:38 Dose: 100 mg - Objective Vital Signs: Vital Signs Temperature 97.7 F 10/14/19 02:00 Pulse Rate 67 10/14/19 02:00 Respiratory Rate 18 10/14/19 02:00 Blood Pressure 126/68 10/14/19 02:00 O2 Sat by Pulse Oximetry (%) 99 10/13/19 21:20 Young man comfortable not in distress HEENT: Mm moist, no anemia, PERRLA EOMI NECK: No JVd No Bruit CHEST: CTA B/L CVS; SS2 R no m/g/r ABD: No distention, non tender BS + EXT: No edema 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 Labs: CBC, BMP 10/14/19 08:00 10/14/19 08:00 Problem List - Problems (1) Alcohol dependence with withdrawal Assessment/Plan: Cont IV Hydrtaion, thiamine, Folic acid Librium protocol observr for Dts Problems reviewed: Yes Code(s): F10.239 - ALCOHOL DEPENDENCE WITH WITHDRAWAL, UNSPECIFIED Qualifiers: Complication of substance-induced condition: with unspecified complication Qualified Code(s): F10.239 - Alcohol dependence with withdrawal, unspecified (2) Hypokalemia Assessment/Plan: Repleted Problems reviewed: Yes Code(s): E87.6 - HYPOKALEMIA (3) Alcohol related seizure Assessment/Plan: Observe for seizures lorazeplam PRN Problems reviewed: Yes Code(s): R56.9 - UNSPECIFIED CONVULSIONS (4) Hypomagnesemia Assessment/Plan: Repleted Problems reviewed: Yes Code(s): E83.42 - HYPOMAGNESEMIA Assessment/Plan Hypokalemia amd Hypomagnesemia repleted F/U BMP Mag in am Observe for DTs
[2019-10-14] MEDS ORDERED: THIAMINE HCL 100 MG TABLET (FP) PO SCH (10:00)
[2019-10-14] MEDS ORDERED: FOLIC ACID 1 MG TABLET (FP) PO SCH (10:00)
[2019-10-14] MEDS ORDERED: MAGNESIUM SULFATE IN WATER 2 GM/50 ML IVPB IVPB ONE (10:15)
--- NOTE | 2019-10-14 10:16 | EKG ---
Test Reason : Blood Pressure : / mmHG Vent. Rate : 087 BPM Atrial Rate : 087 BPM P-R Int : 162 ms QRS Dur : 100 ms QT Int : 390 ms P-R-T Axes : 047 018 032 degrees QTc Int : 469 ms NORMAL SINUS RHYTHM NORMAL ECG WHEN COMPARED WITH ECG OF 03-JUL-2019 22:39, NO SIGNIFICANT CHANGE WAS FOUND Confirmed by Ebenezer Granados MD ([id number]) on 10/14/2019 10:16:43 AM Referred By: Confirmed By:Ebenezer Granados MD
[2019-10-14 22:33] VITALS: BP 145/90; PULSE 67; TEMP 98.2
[2019-10-15] MEDS: chlordiazePOXIDE HCL 25 MG CAPSULE PO PRN (00:43)
[2019-10-15] MEDS ORDERED: chlordiazePOXIDE HCL 25 MG CAPSULE PO SCH (05:00)
[2019-10-16] MEDS ORDERED: chlordiazePOXIDE HCL 10 MG CAPSULE PO PRN
[2019-10-16] MEDS ORDERED: chlordiazePOXIDE HCL 10 MG CAPSULE PO SCH (05:00)
[2019-10-17] MEDS ORDERED: chlordiazePOXIDE HCL 10 MG CAPSULE PO SCH (05:00)
[2019-10-18] MEDS ORDERED: chlordiazePOXIDE HCL 10 MG CAPSULE PO ONE (05:00)
== END 2019-10-15 01:00 | disposition left against medical advice (07) | DRG 770 ==
LOC: FER 14:34 → FM/S 16:35
PROVIDERS: ADMIT Internal Medicine; ATTEND Internal Medicine
PROC: HZ2ZZZZ Detoxification Services for Substance Abuse Treatment (ICD-10-PCS; principal; 2019-10-13)
DX: F10.239 Alcohol dependence with withdrawal, unspecified (principal); E87.6 Hypokalemia; E83.42 Hypomagnesemia; I10 Essential (primary) hypertension; F17.210 Nicotine dependence, cigarettes, uncomplicated; K21.9 Gastro-esophageal reflux disease without esophagitis; F32.9 Major depressive disorder, single episode, unspecified; R11.10 Vomiting, unspecified; R25.1 Tremor, unspecified; R10.9 Unspecified abdominal pain
CPT/HCPCS: 36415; 71045-TC-FY; 80053; 80307; 81003; 82550; 82553; 83690; 83735; 84100; 84484; 85025; 93005; 99283-25; J1644; J7030

== ENCOUNTER 2020-12-12 10:51 | Emergency (ER) | payer OTHER ==
[2020-12-12 11:05] VITALS: BP 163/97; PULSE 70; TEMP 97.7; BMI 30.4
[2020-12-12] MEDS ORDERED: ONDANSETRON 4 MG/2 ML VIAL ONE (11:16)
[2020-12-12] MEDS ORDERED: morphine SULFATE 4 MG/ML VIAL ONE ×2 (11:16→13:01)
[2020-12-12] MEDS ORDERED: morphine CARPU-JECT 4 MG/1 ML DISP.SYRIN IVPUSH ONE ×2 (11:21→12:58)
[2020-12-12] MEDS ORDERED: SODIUM CHLORIDE 0.9% 1000 ML INFUS.BAG IV ONE (11:21)
[2020-12-12] MEDS ORDERED: ONDANSETRON 4 MG/2 ML VIAL IVPUSH ONE (11:22)
[2020-12-12 11:46] LABS: BASO % 1.3 % (0-2.0); EOS % 0.8 % (0-4.5); HEMATOCRIT 44.2 % (35.4-49); HEMOGLOBIN 15.1 GM/dl (11.7-16.9); LYMPH % 11.1 % (8-40); MCH 34.4 pg (25.7-33.7); MCHC 34.1 g/dl (32.0-35.9); MEAN CELL VOLUME 100.8 fl (80-96); MEAN PLT VOLUME 8.9 fl (7.5-11.1); NEUT % 78.8 % (42.8-82.8); PLATELET COUNT 146 K/MM3 (134-434); RBC 4.39 M/mm3 (4.00-5.60); WHITE BLOOD COUNT 10.5 K/mm3 (4.0-10.8)
[2020-12-12 11:58] LABS: ALBUMIN 4.4 g/dl (3.4-5.0); BILIRUBIN,TOTAL 2.3 mg/dl (0.2-1); CALCIUM 9.2 mg/dl (8.5-10); CREATININE 0.8 mg/dl (0.55-1.3); TOT PROT 7.5 g/dl (6.4-8.2)
[2020-12-12] MEDS ORDERED: POTASSIUM CHLORIDE TABS 20 MEQ TABLET.ER (FP) PO ONE ×4 (12:02→13:05)
[2020-12-12] MEDS ORDERED: FOLIC ACID 1 MG TABLET (FP) PO ONE (12:02)
[2020-12-12] MEDS ORDERED: THIAMINE HCL 100 MG TABLET (FP) PO ONE (12:02)
[2020-12-12 12:12] LABS: INR 1.05 (0.82-1.09); PROTHROMBIN TIME (PATIENT) 11.7 SEC (10.2-13.0)
[2020-12-12] MEDS ORDERED: DEXTROSE 5%-0.45% SALINE 1,000 ML IV SCH ×2 (12:15→12:37)
[2020-12-12 12:19] LABS: EPITHELIAL CELLS FEW /hpf; URINE MUCUS 1+
[2020-12-12] MEDS ORDERED: MAGNESIUM SULF 50% (8.12 MEQ/2 ML-1 GM VIAL) IVPB ONE (12:36)
[2020-12-12] MEDS ORDERED: MAGNESIUM 1GM/D5W - 1 GM/100 ML IVPB IVPB ONE (12:38)
[2020-12-12] MEDS ORDERED: FAMOTIDINE 20 MG/50 ML IVPB 20 MG/50 ML MG IVPB ONE ×2 (14:16→14:28)
[2020-12-12] MEDS ORDERED: LIDOCAINE VISCOUS 2% ORAL/TOP 20 ML UNIT-DOSE CUP MM ONE (14:16)
[2020-12-12] MEDS ORDERED: MAG HYDROX/AL HYDROX/SIMETH 30 ML UNIT-DOSE CUP PO ONE (14:16)
[2020-12-12] MEDS ORDERED: MAG HYDROX/AL HYDROX/SIMETH 30 ML UNIT-DOSE CUP ONE (14:28)
[2020-12-12] MEDS ORDERED: LIDOCAINE VISCOUS 2% ORAL/TOP 20 ML UNIT-DOSE CUP ONE (14:29)
== END 2020-12-12 14:43 | disposition home or self-care (01) ==
LOC: FER 10:51
PROC: 3E013VG Introduction of Insulin into Subcutaneous Tissue, Percutaneous Approach (ICD-10-PCS; principal; 2020-12-12)
PROC: 3E033GC Introduction of Other Therapeutic Substance into Peripheral Vein, Percutaneous Approach (ICD-10-PCS; 2020-12-12)
PROC: 3E033GC Introduction of Other Therapeutic Substance into Peripheral Vein, Percutaneous Approach (ICD-10-PCS; 2020-12-12)
PROC: 3E033NZ Introduction of Analgesics, Hypnotics, Sedatives into Peripheral Vein, Percutaneous Approach (ICD-10-PCS; 2020-12-12)
PROC: 3E033NZ Introduction of Analgesics, Hypnotics, Sedatives into Peripheral Vein, Percutaneous Approach (ICD-10-PCS; 2020-12-12)
PROC: 3E033GC Introduction of Other Therapeutic Substance into Peripheral Vein, Percutaneous Approach (ICD-10-PCS; 2020-12-12)
DX: R10.9 Unspecified abdominal pain (principal); K70.0 Alcoholic fatty liver
CPT/HCPCS: 36415; 71045-TC-FY; 74177-TC; 76705-TC; 80053; 80307; 81003; 81015; 83690; 83735; 85025; 85610; 87086; 93005; 96374; 96375; 96376; 99285-25; Q9967

== ENCOUNTER 2021-01-06 17:21 | Emergency (ER) | payer OTHER ==
[2021-01-06 18:38] LABS: EOS % 0.3 % (0-4.5); HEMATOCRIT 43.6 % (35.4-49); HEMOGLOBIN 14.6 GM/dl (11.7-16.9); LYMPH % 14.3 % (8-40); MCHC 33.5 g/dl (32.0-35.9); MEAN CELL VOLUME 104.6 fl (80-96); MEAN PLT VOLUME 7.5 fl (7.5-11.1); MONO % 5.9 % (3.8-10.2); NEUT % 77.5 % (42.8-82.8); PLATELET COUNT 200 K/MM3 (134-434); RBC 4.17 M/mm3 (4.00-5.60); RDW 14.1 % (11.9-15.9); WHITE BLOOD COUNT 11.9 K/mm3 (4.0-10.8)
[2021-01-06 18:46] LABS: ALBUMIN 4.3 g/dl (3.4-5.0); ALK PHOS 70 U/L (45-117); ANION GAP 17 MMOL/L (8-16); BILIRUBIN,TOTAL 0.5 mg/dl (0.2-1); CALCIUM 8.7 mg/dl (8.5-10); CHLORIDE 105 mmol/L (98-107); CO2 15 mmol/L (21-32); CREATININE 0.9 mg/dl (0.55-1.3); GLUCOSE,RANDOM 67 mg/dl (74-106); MAGNESIUM 1.7 mg/dL (1.8-2.4); PHOSPHOROUS 3.5 mg/dl (2.5-4.9); POTASSIUM 3.8 mmol/L (3.5-5.1); SGOT/AST 64 U/L (15-37); SGPT/ALT 43 U/L (13-61); SODIUM 137 mmol/L (136-145); TOT PROT 7.8 g/dl (6.4-8.2)
[2021-01-06 18:48] VITALS: BP 142/92; PULSE 98; TEMP 98.8; BMI 30.4
[2021-01-06] MEDS ORDERED: morphine CARPU-JECT 4 MG/1 ML DISP.SYRIN IVPUSH ONE (19:45)
[2021-01-06] MEDS ORDERED: morphine SULFATE 4 MG/ML VIAL ONE (19:46)
[2021-01-06 20:03] LABS: LIPASE 225 U/L (73-393)
[2021-01-06 21:01] LABS: LACTIC ACID 4.7 mmol/L (0.4-2.0)
== END 2021-01-06 21:06 | disposition left against medical advice (07) ==
LOC: FER 17:21
PROC: 3E033NZ Introduction of Analgesics, Hypnotics, Sedatives into Peripheral Vein, Percutaneous Approach (ICD-10-PCS; principal; 2021-01-06)
DX: R10.84 Generalized abdominal pain (principal)
CPT/HCPCS: 36415; 74177-TC; 80053; 82272; 82550; 83605; 83690; 83735; 84100; 84484; 85025; 93005; 96374; 99285-25; Q9967

== ENCOUNTER 2021-01-12 17:41 | Inpatient (IN) | payer OTHER ==
[2021-01-12 20:12] VITALS: BMI 30.5
[2021-01-12] MEDS ORDERED: MAGNESIUM HYDROX 2400MG/30ML ORAL SUSPENSION 30 ML CUP PO PRN (21:18)
[2021-01-12] MEDS ORDERED: ACETAMINOPHEN 325 MG TABLET (FP) PO PRN ×2 (21:18)
[2021-01-12] MEDS ORDERED: MAG HYDROX/AL HYDROX/SIMETH 30 ML UNIT-DOSE CUP PO PRN (21:18)
[2021-01-12] MEDS ORDERED: BISMUTH SUBSALICYLATE 524 MG/30 ML UD PO PRN (21:18)
[2021-01-12] MEDS ORDERED: NICOTINE POLACRILEX 2 MG GUM BUC PRN (21:18)
[2021-01-12] MEDS ORDERED: MENTHOL/PHENOL 1 EACH UD MM PRN (21:18)
[2021-01-12] MEDS ORDERED: ONDANSETRON *ODT* 4 MG TABLET SL PRN (21:18)
[2021-01-12] MEDS ORDERED: chlordiazePOXIDE HCL 25 MG CAPSULE PO PRN (21:18)
[2021-01-12] MEDS ORDERED: MAGNESIUM CITRATE 300 ML BOTTLE PO PRN (21:18)
[2021-01-12] MEDS ORDERED: MELATONIN 5 MG TABLETS PO SCH (22:00)
[2021-01-12] MEDS: chlordiazePOXIDE HCL 25 MG CAPSULE PO SCH (23:26)
[2021-01-12] MEDS: THIAMINE HCL 100 MG TABLET (FP) PO SCH (23:27)
[2021-01-13] MEDS: chlordiazePOXIDE HCL 25 MG CAPSULE PO SCH ×4 (05:32→22:26)
[2021-01-13] MEDS: NICOTINE 21 MG/24 HOURS TOPICAL PATCH TD SCH (10:19)
[2021-01-13] MEDS: PRENATAL VITAMINS W/ FOLIC ACID TABLET (FP) PO SCH (10:19)
[2021-01-13] MEDS: IBUPROFEN 400 MG TABLET (FP) PO PRN ×2 (10:20→17:42)
[2021-01-13 11:01] LABS: POTASSIUM 3.5 mmol/L (3.5-5.1)
[2021-01-13 11:03] LABS: CALCIUM 8.8 mg/dL (8.5-10.1)
[2021-01-13 11:04] LABS: ALBUMIN 3.4 g/dl (3.4-5.0); BLOOD UREA NITROGEN 9.9 mg/dL (7-18)
[2021-01-13 11:09] LABS: BILIRUBIN,TOTAL 0.3 mg/dL (0.2-1); TOT PROT 6.7 g/dl (6.4-8.2)
[2021-01-13 11:14] LABS: HEMATOCRIT 39.6 % (35.4-49); HEMOGLOBIN 13.7 GM/dL (11.7-16.9); MCH 35.2 pg (25.7-33.7); MCHC 34.6 g/dl (32.0-35.9); MEAN CELL VOLUME 101.8 fl (80-96); MEAN PLT VOLUME 7.8 fl (7.5-11.1); PLATELET COUNT 203 K/MM3 (134-434); RBC 3.89 M/mm3 (4.00-5.60); RDW 14.1 % (11.9-15.9); WHITE BLOOD COUNT 7.2 K/mm3 (4.0-10.0)
[2021-01-13] MEDS: METHOCARBAMOL 500 MG TABLET PO PRN (17:42)
[2021-01-13] MEDS: THIAMINE HCL 100 MG TABLET (FP) PO SCH (22:21)
[2021-01-13] MEDS: DICYCLOMINE HCL 10 MG CAPSULE PO PRN (22:23)
[2021-01-13] MEDS: SUVOREXANT 10 MG TABLET PO PRN (22:25)
[2021-01-14] MEDS: chlordiazePOXIDE HCL 25 MG CAPSULE PO SCH ×4 (07:07→22:33)
[2021-01-14] MEDS: PRENATAL VITAMINS W/ FOLIC ACID TABLET (FP) PO SCH (10:24)
[2021-01-14] MEDS: NICOTINE 21 MG/24 HOURS TOPICAL PATCH TD SCH (10:24)
[2021-01-14] MEDS: DICYCLOMINE HCL 10 MG CAPSULE PO PRN (10:25)
[2021-01-14] MEDS ORDERED: ALBUTEROL SO4 HFA INHALER IH PRN (12:44)
[2021-01-14] MEDS: THIAMINE HCL 100 MG TABLET (FP) PO SCH (22:33)
[2021-01-14] MEDS: SUVOREXANT 10 MG TABLET PO PRN (22:33)
[2021-01-15] MEDS ORDERED: chlordiazePOXIDE HCL 10 MG CAPSULE PO PRN
[2021-01-15] MEDS: METHOCARBAMOL 500 MG TABLET PO PRN ×2 (00:27→22:12)
[2021-01-15] MEDS: chlordiazePOXIDE HCL 10 MG CAPSULE PO SCH ×4 (05:39→22:13)
[2021-01-15] MEDS: PRENATAL VITAMINS W/ FOLIC ACID TABLET (FP) PO SCH (10:12)
[2021-01-15] MEDS: NICOTINE 21 MG/24 HOURS TOPICAL PATCH TD SCH (10:12)
[2021-01-15] MEDS: SUVOREXANT 10 MG TABLET PO PRN (22:12)
[2021-01-15] MEDS: THIAMINE HCL 100 MG TABLET (FP) PO SCH (22:12)
[2021-01-16] MEDS ORDERED: chlordiazePOXIDE HCL 10 MG CAPSULE PO SCH (05:00)
[2021-01-16] MEDS: METHOCARBAMOL 500 MG TABLET PO PRN (06:02)
[2021-01-16 09:33] VITALS: BP 147/90; PULSE 73; TEMP 96.9
[2021-01-16] MEDS: PRENATAL VITAMINS W/ FOLIC ACID TABLET (FP) PO SCH (11:06)
[2021-01-16] MEDS: NICOTINE 21 MG/24 HOURS TOPICAL PATCH TD SCH (11:06)
[2021-01-17] MEDS ORDERED: chlordiazePOXIDE HCL 10 MG CAPSULE PO ONE (05:00)
== END 2021-01-16 11:21 | disposition home or self-care (01) | DRG 775 ==
LOC: YASAS 17:41 → Y3N 22:10
PROVIDERS: ADMIT Allergy & Immunology; ATTEND Allergy & Immunology
PROC: HZ2ZZZZ Detoxification Services for Substance Abuse Treatment (ICD-10-PCS; principal; 2021-01-12)
DX: F10.230 Alcohol dependence with withdrawal, uncomplicated (principal); F17.210 Nicotine dependence, cigarettes, uncomplicated; F10.24 Alcohol dependence with alcohol-induced mood disorder; F10.282 Alcohol dependence with alcohol-induced sleep disorder; F32.9 Major depressive disorder, single episode, unspecified; F43.10 Post-traumatic stress disorder, unspecified; I10 Essential (primary) hypertension; J45.20 Mild intermittent asthma, uncomplicated; K21.9 Gastro-esophageal reflux disease without esophagitis
CPT/HCPCS: 36415; 80053; 85027; 86780; 93005; 93010; C9803; Q0162; U0003; U0005

== ENCOUNTER 2021-06-27 14:05 | Emergency (ER) | payer OTHER ==
[2021-06-27 14:24] VITALS: BP 139/99; PULSE 108; TEMP 98.3; BMI 29.1
[2021-06-27] MEDS ORDERED: chlordiazePOXIDE HCL 25 MG CAPSULE PO ONE (14:34)
[2021-06-27] MEDS ORDERED: ONDANSETRON 4 MG/2 ML VIAL IVPUSH ONE (14:35)
[2021-06-27] MEDS ORDERED: diazePAM CARPU-JECT 10 MG/2 ML DISP.SYRIN IVPUSH ONE (14:35)
[2021-06-27] MEDS ORDERED: ACETAMINOPHEN 1000 MG/100 ML VIAL (NON FORMULARY) IVPB ONE (14:35)
[2021-06-27] MEDS ORDERED: SODIUM CHLORIDE 0.9% 500 ML INFUS.BAG IV ONE (14:36)
[2021-06-27] MEDS ORDERED: chlordiazePOXIDE HCL 25 MG CAPSULE ONE (14:46)
[2021-06-27] MEDS ORDERED: diazePAM CARPU-JECT 10 MG/2 ML DISP.SYRIN ONE (14:46)
[2021-06-27] MEDS ORDERED: ACETAMINOPHEN INJECTION 100 ML IVPB ONE (14:47)
[2021-06-27] MEDS ORDERED: ONDANSETRON 4 MG/2 ML VIAL ONE (14:47)
[2021-06-27 15:36] LABS: BASO % 2.8 % (0-2.0); EOS % 0.5 % (0-4.5); HEMATOCRIT 45.3 % (35.4-49); HEMOGLOBIN 15.2 GM/dl (11.7-16.9); LYMPH % 20.5 % (8-40); MCH 33.6 pg (25.7-33.7); MCHC 33.6 g/dl (32.0-35.9); MONO % 5.9 % (3.8-10.2); NEUT % 70.3 % (42.8-82.8); PLATELET COUNT 230 10^3/uL (134-434); RBC 4.53 M/mm3 (4.00-5.60); RDW 13.3 % (11.9-15.9); WHITE BLOOD COUNT 7.8 K/mm3 (4.0-10.8)
[2021-06-27 15:43] LABS: ALBUMIN 4.2 g/dl (3.4-5.0); BILIRUBIN,TOTAL 0.5 mg/dl (0.2-1); CALCIUM 8.8 mg/dl (8.5-10); TOT PROT 7.4 g/dl (6.4-8.2)
== END 2021-06-27 17:42 | disposition left against medical advice (07) ==
LOC: FER 14:05
PROC: 3E033NZ Introduction of Analgesics, Hypnotics, Sedatives into Peripheral Vein, Percutaneous Approach (ICD-10-PCS; principal; 2021-06-27)
PROC: 3E033GC Introduction of Other Therapeutic Substance into Peripheral Vein, Percutaneous Approach (ICD-10-PCS; 2021-06-27)
PROC: 3E033GC Introduction of Other Therapeutic Substance into Peripheral Vein, Percutaneous Approach (ICD-10-PCS; 2021-06-27)
DX: F10.230 Alcohol dependence with withdrawal, uncomplicated (principal)
CPT/HCPCS: 36415; 70450-TC; 80053; 85025; 96374; 96375; 99285-25; J0131

== ENCOUNTER 2021-08-03 15:33 | Inpatient (IN) | payer OTHER ==
[2021-08-03 17:32] VITALS: BMI 28.5
[2021-08-03] MEDS ORDERED: MAGNESIUM HYDROX 2400MG/30ML ORAL SUSPENSION 30 ML CUP PO PRN (17:51)
[2021-08-03] MEDS ORDERED: NICOTINE 14 MG/24 HOURS TOPICAL PATCH TD PRN (17:51)
[2021-08-03] MEDS ORDERED: NICOTINE POLACRILEX 2 MG GUM BUC PRN (17:51)
[2021-08-03] MEDS ORDERED: MAGNESIUM CITRATE 300 ML BOTTLE PO PRN (17:51)
[2021-08-03] MEDS ORDERED: NICOTINE 10 MG CARTRIDGE (INHALER) IH PRN (17:51)
[2021-08-03] MEDS ORDERED: IBUPROFEN 400 MG TABLET (FP) PO PRN (17:51)
[2021-08-03] MEDS ORDERED: ACETAMINOPHEN 325 MG TABLET (FP) PO PRN ×2 (17:51)
[2021-08-03] MEDS ORDERED: MAG HYDROX/AL HYDROX/SIMETH 30 ML UNIT-DOSE CUP PO PRN (17:51)
[2021-08-03] MEDS ORDERED: MENTHOL/PHENOL 1 EACH UD MM PRN (17:51)
[2021-08-03] MEDS ORDERED: BISMUTH SUBSALICYLATE 524 MG/30 ML PO PRN (17:51)
[2021-08-03] MEDS ORDERED: ONDANSETRON *ODT* 4 MG TABLET SL PRN (17:51)
[2021-08-03] MEDS ORDERED: diazePAM 5 MG TABLET PO ONE (17:51)
[2021-08-03] MEDS ORDERED: ONDANSETRON *ODT* 4 MG TABLET ONE (20:18)
[2021-08-03] MEDS: PRENATAL VITAMINS W/ FOLIC ACID TABLET (FP) PO SCH (21:08)
[2021-08-03] MEDS: hydrOXYzine PAMOATE 25 MG CAPSULE (FP) PO SCH ×2 (21:08→22:28)
[2021-08-03] MEDS: diazePAM 5 MG TABLET PO SCH (22:28)
[2021-08-03] MEDS: MELATONIN 5 MG TABLETS PO SCH (22:28)
[2021-08-03] MEDS: THIAMINE HCL 100 MG TABLET (FP) PO SCH (22:28)
[2021-08-04] MEDS: diazePAM 5 MG TABLET PO SCH ×4 (05:25→22:36)
[2021-08-04] MEDS: hydrOXYzine PAMOATE 25 MG CAPSULE (FP) PO SCH ×5 (05:26→22:36)
[2021-08-04] MEDS: PRENATAL VITAMINS W/ FOLIC ACID TABLET (FP) PO SCH (10:32)
[2021-08-04] MEDS ORDERED: ALBUTEROL SO4 HFA INHALER IH PRN (10:50)
[2021-08-04] MEDS ORDERED: ALBUTEROL SO4 0.083% IH SOL 2.5 MG/3 ML VIAL.NEB. NEB PRN (10:51)
[2021-08-04 10:56] LABS: HEMATOCRIT 41.8 % (35.4-49); HEMOGLOBIN 14.4 GM/dL (11.7-16.9); MCHC 34.4 g/dl (32.0-35.9); MEAN CELL VOLUME 98.7 fl (80-96); MEAN PLT VOLUME 8.3 fl (7.5-11.1); PLATELET COUNT 225 10^3/uL (134-434); RBC 4.24 M/mm3 (4.00-5.60); RDW 13.9 % (11.9-15.9); WHITE BLOOD COUNT 7.2 K/mm3 (4.0-10.0)
[2021-08-04 11:01] LABS: CALCIUM 9.1 mg/dL (8.5-10.1)
[2021-08-04 11:02] LABS: ALBUMIN 3.5 g/dl (3.4-5.0); BLOOD UREA NITROGEN 12.4 mg/dL (7-18)
[2021-08-04 11:06] LABS: TOT PROT 7.2 g/dl (6.4-8.2)
[2021-08-04 11:08] LABS: CREATININE 0.9 mg/dL (0.55-1.3)
[2021-08-04] MEDS: METHOCARBAMOL 500 MG TABLET PO PRN (12:37)
[2021-08-04] MEDS: amLODIPine BESYLATE 10 MG TABLET (FP) PO SCH (12:37)
[2021-08-04] MEDS: diazePAM 5 MG TABLET PO PRN (12:38)
[2021-08-04] MEDS: SODIUM CHLORIDE NASAL SPRAY 44 ML BOTTLE NS SCH ×2 (13:19→22:36)
[2021-08-04] MEDS: THIAMINE HCL 100 MG TABLET (FP) PO SCH (22:36)
[2021-08-04] MEDS: MELATONIN 5 MG TABLETS PO SCH (22:36)
[2021-08-05] MEDS ORDERED: diazePAM 5 MG TABLET PO SCH (06:00)
[2021-08-05] MEDS: diazePAM 5 MG TABLET PO SCH (06:00)
[2021-08-05] MEDS: SODIUM CHLORIDE NASAL SPRAY 44 ML BOTTLE NS SCH (06:08)
[2021-08-05] MEDS: hydrOXYzine PAMOATE 25 MG CAPSULE (FP) PO SCH ×2 (06:09→10:09)
[2021-08-05] MEDS: METHOCARBAMOL 500 MG TABLET PO PRN (06:11)
[2021-08-05] MEDS: diazePAM 5 MG TABLET PO PRN (10:07)
[2021-08-05] MEDS: amLODIPine BESYLATE 10 MG TABLET (FP) PO SCH (10:07)
[2021-08-05] MEDS: PRENATAL VITAMINS W/ FOLIC ACID TABLET (FP) PO SCH (10:07)
[2021-08-05 13:37] VITALS: BP 145/98; PULSE 90; TEMP 97.3
[2021-08-06] MEDS ORDERED: diazePAM 5 MG TABLET PO SCH (06:00)
[2021-08-07] MEDS ORDERED: diazePAM 5 MG TABLET PO ONE (06:00)
== END 2021-08-05 14:40 | disposition left against medical advice (07) | DRG 770 ==
LOC: YASAS 15:33 → Y6N 20:24
PROVIDERS: ADMIT Allergy & Immunology; ATTEND Allergy & Immunology
PROC: HZ2ZZZZ Detoxification Services for Substance Abuse Treatment (ICD-10-PCS; principal; 2021-08-03)
DX: F10.230 Alcohol dependence with withdrawal, uncomplicated (principal); F17.210 Nicotine dependence, cigarettes, uncomplicated; F43.10 Post-traumatic stress disorder, unspecified; F41.9 Anxiety disorder, unspecified; F32.9 Major depressive disorder, single episode, unspecified; I10 Essential (primary) hypertension; J45.20 Mild intermittent asthma, uncomplicated
CPT/HCPCS: 36415; 80053; 85027; 86780; C9803; Q0162; U0003; U0005

== ENCOUNTER 2024-08-08 07:42 | Emergency (ER) | payer OTHER ==
[2024-08-08 08:32] VITALS: BP 96/74; PULSE 108; RESP 18; TEMP 97.5; BMI 28.5
[2024-08-08] MEDS ORDERED: IBUPROFEN 600 MG TABLET (FP) PO ONE (09:21)
[2024-08-08] MEDS: IBUPROFEN 600 MG TABLET (FP) PO ONE (09:23)
[2024-08-08 09:26] LABS: HEMATOCRIT 44.4 % (35.4-49); HEMOGLOBIN 14.4 G/dL (11.7-16.9); MCH 30.9 pg (25.7-33.7); MCHC 32.3 g/dl (32.0-35.9); MEAN CELL VOLUME 95.5 fl (80-96); MEAN PLT VOLUME 7.9 fl (7.5-11.1); PLATELET COUNT 212.8 10^3/uL (134-434); RBC 4.65 10^6/uL (4.00-5.60); RDW 14.7 % (11.9-15.9)
[2024-08-08 09:29] LABS: ALBUMIN 4.2 g/dl (3.4-5.0); ALK PHOS 74 U/L (45-117); ANION GAP 7 mmol/L (4-13); BILIRUBIN,TOTAL 0.8 mg/dl (0.2-1); CALCIUM 9.2 mg/dl (8.5-10.1); CHLORIDE 106 mmol/L (98-107); CO2 25 mmol/L (21-32); CREATININE 0.8 mg/dl (0.6-1.3); GLUCOSE,RANDOM 107 mg/dl (74-106); POTASSIUM 3.4 mmol/L (3.5-5.1); SGOT/AST 33 U/L (15-37); SGPT/ALT 34 U/L (7-52); SODIUM 138 mmol/L (136-145); TOT PROT 6.5 g/dl (6.4-8.2)
[2024-08-08 09:52] LABS: PLATELET ESTIMATE ADEQUATE
== END 2024-08-08 10:30 | disposition home or self-care (01) ==
LOC: FER 07:42
DX: M25.562 Pain in left knee (principal); F10.20 Alcohol dependence, uncomplicated; R45.851 Suicidal ideations; Z20.822 Contact with and (suspected) exposure to COVID-19; Y90.0 Blood alcohol level of less than 20 mg/100 ml
CPT/HCPCS: 0241U-QW; 36415; 73562-TC-LT-FY; 80053; 80307; 84443; 85027; 99284-25

== ENCOUNTER 2025-06-20 14:12 | Inpatient (IN) | payer OTHER ==
[2025-06-20 14:42] VITALS: BMI 27.8
[2025-06-20] MEDS ORDERED: guaiFENesin 600 MG TABLET.ER (FP) PO PRN (16:40)
[2025-06-20] MEDS ORDERED: MAGNESIUM HYDROX 2400MG/30ML ORAL SUSPENSION 30 ML CUP PO PRN (16:40)
[2025-06-20] MEDS ORDERED: hydrOXYzine PAMOATE 25 MG CAPSULE (FP) PO PRN (16:40)
[2025-06-20] MEDS ORDERED: ACETAMINOPHEN 325 MG TABLET (FP) PO PRN (16:40)
[2025-06-20] MEDS ORDERED: IBUPROFEN 600 MG TABLET (FP) PO PRN (16:40)
[2025-06-20] MEDS ORDERED: NICOTINE POLACRILEX 2 MG LOZENGE BC PRN (16:40)
[2025-06-20] MEDS ORDERED: BENZONATATE 200 MG CAPSULE PO PRN (16:40)
[2025-06-20] MEDS ORDERED: LOPERAMIDE HCL 2 MG CAPSULE PO PRN (16:40)
[2025-06-20] MEDS ORDERED: BISACODYL 5 MG TABLET.DR (FP) PO PRN (16:40)
[2025-06-20] MEDS ORDERED: IBUPROFEN 400 MG TABLET (FP) PO PRN (16:40)
[2025-06-20] MEDS ORDERED: BENZOCAINE/MENTHOL (CHLORASEPTIC ) LOZENGE MM PRN (16:40)
[2025-06-20] MEDS ORDERED: DICYCLOMINE HCL 10 MG CAPSULE PO PRN (16:40)
[2025-06-20] MEDS ORDERED: POLYETHYLENE GLYCOL (HEALTHYLAX) 3350 17 GM PACKET PO PRN (16:40)
[2025-06-20] MEDS ORDERED: MAG HYDROX/AL HYDROX/SIMETH 30 ML UNIT-DOSE CUP PO PRN (16:40)
[2025-06-20] MEDS ORDERED: BISMUTH SUBSALICYLATE 524 MG/30 ML PO PRN (16:40)
[2025-06-20] MEDS ORDERED: METHOCARBAMOL 500 MG TABLET PO PRN (16:40)
[2025-06-20] MEDS ORDERED: NALOXONE (NARCAN) HCL 4 MG/0.1 ML SPRAY NS PRN (16:40)
[2025-06-20] MEDS ORDERED: ONDANSETRON *ODT* 4 MG TABLET ONE (16:46)
[2025-06-20] MEDS: ONDANSETRON *ODT* 4 MG TABLET SL PRN (16:51)
[2025-06-20] MEDS: THIAMINE 100 MG TABLET PO SCH (22:39)
[2025-06-20] MEDS: MELATONIN 5 MG TABLETS PO SCH (22:39)
[2025-06-21 09:43] LABS: MCHC 33.3 g/dl (32.3-36.5); MEAN CELL VOLUME 88.1 fl (79.0-92.2); MEAN PLT VOLUME 10.1 fl (9.4-12.4); RDW 13.3 % (12.2-16.1)
[2025-06-21] MEDS: PRENATAL VITAMINS W/ FOLIC ACID TABLET (FP) PO SCH (10:06)
[2025-06-21 10:12] LABS: GLUCOSE,RANDOM 123 mg/dL (74-106); TOT PROT 6.8 g/dl (6.4-8.2)
[2025-06-21 10:13] LABS: CO2 24 mmol/L (21-32)
[2025-06-21 10:15] LABS: ALK PHOS 82 U/L (40-150)
[2025-06-21 10:17] LABS: SGOT/AST 35 U/L (5-34); SGPT/ALT 37 U/L (0-55)
[2025-06-21 10:18] LABS: CREATININE 0.98 mg/dL (0.55-1.3)
[2025-06-21 15:09] VITALS: BP 118/77; PULSE 61; RESP 18; TEMP 98.2
[2025-06-21] MEDS: NICOTINE POLACRILEX 2 MG GUM BUC PRN (15:28)
[2025-06-22] MEDS ORDERED: PNEUMOC 20-VAL CONJ-DIP CRM/PF 0.5 ML SYRINGE IM ONE (12:00)
== END 2025-06-21 23:55 | DRG 775 ==
LOC: YASAS 14:12 → Y6N 17:13
PROVIDERS: ADMIT Neuromusculoskeletal Medicine & OMM; ATTEND Student in an Organized Health Care Education/Training Program
PROC: HZ2ZZZZ Detoxification Services for Substance Abuse Treatment (ICD-10-PCS; principal; 2025-06-20)
DX: F10.230 Alcohol dependence with withdrawal, uncomplicated (principal); F12.20 Cannabis dependence, uncomplicated; F17.210 Nicotine dependence, cigarettes, uncomplicated; F10.282 Alcohol dependence with alcohol-induced sleep disorder; F10.24 Alcohol dependence with alcohol-induced mood disorder; F33.1 Major depressive disorder, recurrent, moderate; F43.10 Post-traumatic stress disorder, unspecified; G47.00 Insomnia, unspecified; I10 Essential (primary) hypertension; J45.20 Mild intermittent asthma, uncomplicated; K21.9 Gastro-esophageal reflux disease without esophagitis; Z59.00 Homelessness unspecified
CPT/HCPCS: 36415; 80053; 80307; 85027; 86780; 86803; 93005; 93010; Q0162